=== PATIENT | female | born 1945 | race Caucasian/White ===

== ENCOUNTER 2019-12-21 13:45 | Outpatient (RCR) | payer MEDICARE, OTHER, SELFPAY ==
--- NOTE | 2019-09-28 13:57 | PT.OIE ---
Current Diagnoses Complex tear of medial meniscus, current injury, right knee, sequela (09/28/19) Other tear of medial meniscus, current injury, right knee, subsequent encounter (09/28/19) Visit Care Team Role Provider Type Santos Mendez Family Provider Non-Staff Primary Care Provider Specialty: Medical Address: [address], [place], [address] Email: Aron Lopez Attending Provider Non-Staff Referring Provider Specialty: Medical Address: [address], [place], [address] Email: Physical Therapy Initial Evaluation PT-OP-A Visit Information Start: 09/28/19 12:11 Freq: Status: Active Protocol: Document 09/28/19 10:31 (Rec: 09/28/19 13:53 [id number]) Out-Patient Physical Therapy Visit Information Visit Information Visit Type Initial Evaluation Visit Start Time 10:31 Visit Stop Time 11:15 Total Visit Minutes 44 Visit Number 07/30 Number of ROLLER STITCHER Visits 0 Evaluation Information Evaluation Date 09/28/19 Precautions Precautions OSteopenia falls PT-OP-B Current Condition Start: 09/28/19 12:11 Freq: Status: Active Protocol: Document 09/28/19 10:31 HH (Rec: 09/28/19 13:53 [id number]) Current Condition History of Current Condition Onset Date March, Current Complaints Post op R medial menicus removal, difficulty in bending History of Current Condition Pt is a 73yo female presented to clinic ongoing R knee pain since 2018 after two falls while she was trimming tree branches and moving supplies to 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 Pt went to see his PCP and was prescribed with some knee exercise and Alive for pain management. However, pt did not feel better and found out she has torn medial meniscus from MRI. Pt then went through arthoscopic clean up and removal on 08/09/19. Pt cont to have achy pain at medial joint line and have difficuly in sitting/ at flexed position. Walking tends to be fine but has difficulty climbing stairs and unable to kneel on floor for gardening work. Walking on uneven surface is also challenging; icing on her R knee and Alieve tends to help her pain. Dr. Lopez told pt to avoid jumping, running and twisting movements at this point to allow proper healing until her next follow up in November. Prior Treatments and Tests Dr. Lopez's referral comments: ROM, strnegtehning, stabilization including VMO strengtehning, IT band stretches, hip abduction and external rotator strengthening Treatment Goals Patient/Caregiver Goals 1. To be pain while sitting, squatting and climbing stairs 2. To be able to kneel on floor for her gardening work Personal Factors Other Personal Factors That May Effect Thyroid disorder Therapy/Recovery osteopenia DM II PT-OP-C Subjective Start: 09/28/19 12:11 Freq: Status: Active Protocol: Document 09/28/19 10:31 HH (Rec: 09/28/19 13:53 [id number]) OP-PT Subjective Patient Comments Patient Comments I just want to get my pain away Patient Questionnaires Lower Extremity Functional Scale LEFS Score 44 LEFS Impairment 40 to 59% Impaired (Score 32- 47) PT-OP-D Balance Start: 09/28/19 12:11 Freq: Status: Active Protocol: Document 09/28/19 10:31 HH (Rec: 09/28/19 13:53 [id number]) Balance Tests Single Limb Standing Single Limb- Right 3 Single Limb- Left 6 PT-OP-F Manual Assessment Start: 09/28/19 12:11 Freq: Status: Active Protocol: Document 09/28/19 10:31 HH (Rec: 09/28/19 13:53 [id number]) Manual Assessments Soft Tissue Assessment Soft Tissue Mobility Assessment Significant tenderness to touch at medial knee joint line and to pressure for distal hip adductors. PT-OP-G Mobility & Gait Start: 09/28/19 12:11 Freq: Status: Active Protocol: Document 09/28/19 10:31 HH (Rec: 09/28/19 13:53 [id number]) OP Gait Assessment Gait Deviations General Gait Pattern Decreased Stride Length, Decreased Feet Clearance Factors Limiting Gait Function Factors Limiting Gait Function Limited Range of Motion,Pain Comments Gait Comments Pt demonstrates bilateral early heel rise with limited feet clearance during swing phase. Short steps also noted. PT-OP-K Range of Motion Start: 09/28/19 12:11 Freq: Status: Active Protocol: Document 09/28/19 10:31 HH (Rec: 09/28/19 13:53 [id number]) Knee Goniometric Range of Motion Knee Right Knee ROM WFL Yes Patient Position Supine Flexion Active (degrees) 126 Extension Active (degrees) 0 Left Knee ROM WFL Yes Patient Position Supine Flexion Active (degrees) 135 Hyper-Extension Active 3 PT-OP-M Strength Start: 09/28/19 12:11 Freq: Status: Active Protocol: Document 09/28/19 10:31 (Rec: 09/28/19 13:53 [id number]) Knee Strength Knee Manual Muscle Testing Right Flexion (S2) 4+ Good+ Extension (L3) 4+ Good+ Comments no pain noted. Left Flexion (S2) 5 Normal Extension (L3) 5 Normal PT-OP-Q Treatments Start: 09/28/19 12:11 Freq: Status: Active Protocol: Document 09/28/19 10:31 (Rec: 09/28/19 13:53 [id number]) Manual Therapy Treatment Soft Tissue Mobilization knee (medial joint line) Mobilization Type Sustained Pressure,Trigger Point Release Intensity/Depth Superficial Body Position Supine Comments significant pain noted with light pressure. hip adductors Body Location R distal hip adductors Mobilization Type Rolling,Sustained Pressure, Trigger Point Release Intensity/Depth Superficial Body Position Supine Comments pillow underneath knee use of rolling pin and significant pain noted Self-Care/Home Management Treatment Education Patient Education Fall Risk,Home Exercise Program,Pain Management, Posture Other Education Educated pt on pain science regarding pain sensitization. Demonstrated pt with PT-OP-T Assessment and Plan Start: 09/28/19 12:11 Freq: Status: Active Protocol: Document 09/28/19 10:31 (Rec: 09/28/19 13:53 [id number]) Physical Therapy Assessment Rehab Potential Rehabilitation Potential Excellent Evaluation Complexity Number of Personal Factors/Comorbidities 1-2 Number of Body Systems Impaired 1-2 Clinical Presentation at Evaluation Stable Impairments Impairments Activity Tolerance,Balance, Functional Activities, Functional Mobility,Gait,Pain, Posture,ROM,Sensation,Soft Tissue Mobility,Strength, Transfers Goals gait Impairment Pt amb with lack of heel toe pattern bilaterally Electroplating Sales Representative Goal (LTG) Pt will participate HEP to improve gait efficiency and reduce her fall risks LTG Duration 8 weeks balance Impairment Pt has very limited SLS R=3 s, L =6 Short Term Goal (STG) Pt will improve her single leg balance by 5s bilaterally STG Duration 4 weeks Chcf Goal (LTG) Pt will improve her single leg balance by 10 s bilaterally so pt can walk on uneven surface without discomfort. LTG Duration 8 weeks pain Impairment Pt has heightened pain sensitivity to touch/ pressure at Rmedial joint line Chcf Goal (LTG) Pt will not have any R knee pain while squatting, sitting and stair climbing LTG Duration 8 weeks LEFS Impairment Pt scores 44 on LEFS Short Term Goal (STG) Pt will score > 48 to reduce her pain for functional activities STG Duration 4 weeks Chcf Goal (LTG) pt will score >63 on LEFS to improve her overall quality of life LTG Duration 8 weeks Assessment Summary Assessment This is a low complexity evaluation for this 73yo female with ongoing L knee pain d/t a complex tear of R medial meniscus. Pt had a arthroscopic surgery on but cont to have residual knee pain. Upon assessment, pt has close to full active ROM compared to L and only lack of 3 degrees for knee extension and 8 degree for knee flexion. Her overall strength is also WFL. However, pt has significant pain to touch and pressure along R hip distal adductors , especially at L knee medial joint line. Performed manual therapy on both sites to facilitate soft tissue desensitization who was able to bend her R knee in pain free immediately. Spend time on pain education regarding her injury and post surgical increased sensitivity . Pt will be a good canadidate for skilled physical therapy to improve her R knee mobility , strength, pain threshold to touch and pressure so pt can return to participating gardening work and climbing stairs in pain free. Physical Therapy Plan Frequency and Duration Frequency of Treatment 2x/Week Duration of Treatment 8 weeks Plan of Care Start Date 09/28/19 Plan of Care End Date 11/27/19 Therapeutic Interventions Therapeutic Interventions Balance Training,Gait Training ,Home Exercise Program,Joint Mobilizations,Manual Therapy, Neuromuscular Re-education, Patient/Caregiver Education, Self-Care/Home Management, Sensory Integration,Soft Tissue Mobilization,Taping, Therapeutic Activities, Therapeutic Exercises Modalities Cold Pack/Ice Massage,Electric Stimulation,Hot Packs, Infrared Therapy,Ultrasound Next Visit Focus/Plan Next Note Type Treatment Note Next Visit Plan check tolerance for post manual therapy cont desensitization to surroduning tissue add TKE and end range knee flexion balance training and leg press
--- NOTE | 2019-09-28 15:54 | PT.OPPOC ---
Physical, Occupational & Speech Therapy At [facility] Current Diagnoses Complex tear of medial meniscus, current injury, right knee, sequela (09/28/19) Other tear of medial meniscus, current injury, right knee, subsequent encounter (09/28/19) Visit Care Team Role Provider Type Santos Mendez Family Provider Non-Staff Primary Care Provider Specialty: Medical Address: [address], [place], [address] Email: Aron Lopez Attending Provider Non-Staff Referring Provider Specialty: Medical Address: [address], [place], [address] Email: Plan Of Care PT-OP-T Assessment and Plan Start: 09/28/19 12:11 Freq: Status: Active Protocol: Document 09/28/19 10:31 (Rec: 09/28/19 13:53 [id number]) Physical Therapy Assessment Rehab Potential Rehabilitation Potential Excellent Evaluation Complexity Number of Personal Factors/Comorbidities 1-2 Number of Body Systems Impaired 1-2 Clinical Presentation at Evaluation Stable Impairments Impairments Activity Tolerance,Balance, Functional Activities, Functional Mobility,Gait,Pain, Posture,ROM,Sensation,Soft Tissue Mobility,Strength, Transfers Goals gait Impairment Pt amb with lack of heel toe pattern bilaterally Half-Way Goal (LTG) Pt will participate HEP to improve gait efficiency and reduce her fall risks LTG Duration 8 weeks balance Impairment Pt has very limited SLS R=3 s, L =6 Short Term Goal (STG) Pt will improve her single leg balance by 5s bilaterally STG Duration 4 weeks Half-Way Goal (LTG) Pt will improve her single leg balance by 10 s bilaterally so pt can walk on uneven surface without discomfort. LTG Duration 8 weeks pain Impairment Pt has heightened pain sensitivity to touch/ pressure at Rmedial joint line Criminal Records Technician Goal (LTG) Pt will not have any R knee pain while squatting, sitting and stair climbing LTG Duration 8 weeks LEFS Impairment Pt scores 44 on LEFS Short Term Goal (STG) Pt will score > 48 to reduce her pain for functional activities STG Duration 4 weeks Half-Way Goal (LTG) pt will score >63 on LEFS to improve her overall quality of life LTG Duration 8 weeks Assessment Summary Assessment This is a low complexity evaluation for this 73yo female with ongoing L knee pain d/t a complex tear of R medial meniscus. Pt had a arthroscopic surgery on but cont to have residual knee pain. Upon assessment, pt has close to full active ROM compared to L and only lack of 3 degrees for knee extension and 8 degree for knee flexion. Her overall strength is also WFL. However, pt has significant pain to touch and pressure along R hip distal adductors , especially at L knee medial joint line. Performed manual therapy on both sites to facilitate soft tissue desensitization who was able to bend her R knee in pain free immediately. Spend time on pain education regarding her injury and post surgical increased sensitivity . Pt will be a good canadidate for skilled physical therapy to improve her R knee mobility , strength, pain threshold to touch and pressure so pt can return to participating gardening work and climbing stairs in pain free. Physical Therapy Plan Frequency and Duration Frequency of Treatment 2x/Week Duration of Treatment 8 weeks Plan of Care Start Date 09/28/19 Plan of Care End Date 11/27/19 Therapeutic Interventions Therapeutic Interventions Balance Training,Gait Training ,Home Exercise Program,Joint Mobilizations,Manual Therapy, Neuromuscular Re-education, Patient/Caregiver Education, Self-Care/Home Management, Sensory Integration,Soft Tissue Mobilization,Taping, Therapeutic Activities, Therapeutic Exercises Modalities Cold Pack/Ice Massage,Electric Stimulation,Hot Packs, Infrared Therapy,Ultrasound Next Visit Focus/Plan Next Note Type Treatment Note Next Visit Plan check tolerance for post manual therapy cont desensitization to surroduning tissue add TKE and end range knee flexion balance training and leg press Plan of Care Dates Plan of Care Start Date 09/28/19 Plan of Care End Date 11/27/19 Electronically Signed by: Leesa Heck PT 09/28/19 [id number] Please Sign and Return: I have reviewed this Plan of Care and certify that the skilled therapy services above are required to meet the patient?s needs. Physician Signature Date Printed Name and Credentials Clinical Instructor Signature Printed Name and Credentials
--- NOTE | 2019-10-03 16:18 | PT.OTN ---
Current Diagnoses Complex tear of medial meniscus, current injury, right knee, sequela (10/03/19) Other tear of medial meniscus, current injury, right knee, subsequent encounter (10/03/19) Physical Therapy Treatment Note PT-OP-A Visit Information Start: 09/28/19 12:11 Freq: Status: Active Protocol: Document 10/03/19 15:15 HH (Rec: 10/03/19 16:18 HH [email or web address]) Out-Patient Physical Therapy Visit Information Visit Information Visit Type Treatment Note Visit Start Time 15:15 Visit Stop Time 16:01 Total Visit Minutes 46 Visit Number 08/30 Number of DANCING TEACHER Visits 0 PT-OP-B Current Condition Start: 09/28/19 12:11 Freq: Status: Active Protocol: Document 09/28/19 10:31 HH (Rec: 09/28/19 13:53 HH [id number]) Current Condition History of Current Condition Onset Date March, Current Complaints Post op R medial menicus removal, difficulty in bending History of Current Condition Pt is a 73yo female presented to clinic ongoing R knee pain since 2018 after two falls while she was trimming tree branches and moving supplies to her 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 Pt went to see his PCP and was prescribed with some knee exercise and Alive for pain management. However, pt did not feel better and found out she has torn medial meniscus from MRI. Pt then went through arthoscopic clean up and removal on 08/09/19. Pt cont to have achy pain at medial joint line and have difficuly in sitting/ at flexed position. Walking tends to be fine but has difficulty climbing stairs and unable to kneel on floor for gardening work. Walking on uneven surface is also challenging; icing on her R knee and Alieve tends to help her pain. Dr. Lopez told pt to avoid jumping, running and twisting movements at this point to allow proper healing until her next follow up in November. Prior Treatments and Tests Dr. Lopez's referral comments: ROM, strnegtehning, stabilization including VMO strengtehning, IT band stretches, hip abduction and external rotator strengthening Treatment Goals Patient/Caregiver Goals 1. To be pain while sitting, squatting and climbing stairs 2. To be able to kneel on floor for her gardening work Personal Factors Other Personal Factors That May Effect Thyroid disorder Therapy/Recovery osteopenia DM II PT-OP-C Subjective Start: 09/28/19 12:11 Freq: Status: Active Protocol: Document 10/03/19 15:15 HH (Rec: 10/03/19 16:18 HH [email or web address]) OP-PT Subjective Patient Comments Patient Comments my knee feels better and im better sleep on my side now. Pratibha been using rolling pin for my thigh and massage my knee joint. Patient Reported Progress Improving PT-OP-D Balance Start: 09/28/19 12:11 Freq: Status: Active Protocol: Document 09/28/19 10:31 HH (Rec: 09/28/19 13:53 HH [id number]) Balance Tests Single Limb Standing Single Limb- Right 3 Single Limb- Left 6 PT-OP-F Manual Assessment Start: 09/28/19 12:11 Freq: Status: Active Protocol: Document 09/28/19 10:31 HH (Rec: 09/28/19 13:53 HH [id number]) Manual Assessments Soft Tissue Assessment Soft Tissue Mobility Assessment Significant tenderness to touch at medial knee joint line and to pressure for distal hip adductors. PT-OP-G Mobility & Gait Start: 09/28/19 12:11 Freq: Status: Active Protocol: Document 09/28/19 10:31 HH (Rec: 09/28/19 13:53 HH [id number]) OP Gait Assessment Gait Deviations General Gait Pattern Decreased Stride Length, Decreased Feet Clearance Factors Limiting Gait Function Factors Limiting Gait Function Limited Range of Motion,Pain Comments Gait Comments Pt demonstrates bilateral early heel rise with limited feet clearance during swing phase. Short steps also noted. PT-OP-K Range of Motion Start: 09/28/19 12:11 Freq: Status: Active Protocol: Document 09/28/19 10:31 HH (Rec: 09/28/19 13:53 HH [id number]) Knee Goniometric Range of Motion Knee Right Knee ROM WFL Yes Patient Position Supine Flexion Active (degrees) 126 Extension Active (degrees) 0 Left Knee ROM WFL Yes Patient Position Supine Flexion Active (degrees) 135 Hyper-Extension Active 3 PT-OP-M Strength Start: 09/28/19 12:11 Freq: Status: Active Protocol: Document 09/28/19 10:31 HH (Rec: 09/28/19 13:53 HH [id number]) Knee Strength Knee Manual Muscle Testing Right Flexion (S2) 4+ Good+ Extension (L3) 4+ Good+ Comments no pain noted. Left Flexion (S2) 5 Normal Extension (L3) 5 Normal PT-OP-Q Treatments Start: 09/28/19 12:11 Freq: Status: Active Protocol: Document 10/03/19 15:15 HH (Rec: 10/03/19 16:18 [email or web address]) Therapeutic Exercises Supine Exercises heel slide Supine Exercise Name towel underneath ankle Side right Reps/Minutes 8 x2 Comments for HEP, slow knee flexion TKE Supine Exercise Name towel underneath ankle Side right Reps/Minutes 8 x2 Comments for HEP Standing Exercises marching in place Standing Exercise Name finger support on table Side bilateral Comments 3 sec hold x 8 Manual Therapy Treatment Soft Tissue Mobilization knee (medial joint line) Mobilization Type Sustained Pressure,Trigger Point Release Intensity/Depth Superficial Body Position Supine Comments significant pain noted with light pressure. hip adductors Body Location R distal hip adductors Mobilization Type Rolling,Sustained Pressure, Trigger Point Release Intensity/Depth Superficial Body Position Supine Comments pillow underneath knee use of rolling pin and significant pain noted PT-OP-T Assessment and Plan Start: 09/28/19 12:11 Freq: Status: Active Protocol: Document 10/03/19 15:15 HH (Rec: 10/03/19 16:18 [email or web address]) Physical Therapy Assessment Goals gait Impairment Pt amb with lack of heel toe pattern bilaterally Child Protective Services Social Worker Goal (LTG) Pt will participate HEP to improve gait efficiency and reduce her fall risks LTG Duration 8 weeks balance Impairment Pt has very limited SLS R=3 s, L =6 Short Term Goal (STG) Pt will improve her single leg balance by 5s bilaterally STG Duration 4 weeks Child Protective Services Social Worker Goal (LTG) Pt will improve her single leg balance by 10 s bilaterally so pt can walk on uneven surface without discomfort. LTG Duration 8 weeks pain Impairment Pt has heightened pain sensitivity to touch/ pressure at Rmedial joint line Chcf Goal (LTG) Pt will not have any R knee pain while squatting, sitting and stair climbing LTG Duration 8 weeks LEFS Impairment Pt scores 44 on LEFS Short Term Goal (STG) Pt will score > 48 to reduce her pain for functional activities STG Duration 4 weeks Chcf Goal (LTG) pt will score >63 on LEFS to improve her overall quality of life LTG Duration 8 weeks Assessment Summary Assessment pt improves since last treatment with less pain and improved ROM. Flexion reached to 132 degrees actively. Tx focused on manual therapy on R hip add and medial joint line followed by HEP TKE, heel slide and SLS. Provided online HEP for pt to progress. Hold PT since this clinic will close from tomorrow until further notice d/t coronavirus . Will follow up after with pt via phone for check up. Physical Therapy Plan Hold Physical Therapy Reason For Hold Hold PT since this clinic will close from tomorrow until further notice d/t coronavirus . Will follow up after with pt via phone for check up. Next Visit Focus/Plan Next Note Type Treatment Note Next Visit Plan check tolerance for post manual therapy cont desensitization to surroduning tissue add TKE and end range knee flexion balance training and leg press
--- NOTE | 2019-11-13 15:06 | PT-OP ANOTE ---
This PT clinic has been closed since 10/03 d/t coronavirus pademic. Contacted pt via phone 11/08/19, pt reported her knee pain has improved and slowly progress to kneeling activities but still has difficulty to maintain kneeling position for garden work. She would like to continue therapy service to address her knee ROM and strength for functional activities in squating and kneeling positions. Reminded pt will have to follow CDC guidelines to wear mask, wash hands frequently and maintain social distancing during visits.
--- NOTE | 2019-11-23 15:28 | PT.OPPOC ---
Physical, Occupational & Speech Therapy At [facility] Current Diagnoses Complex tear of medial meniscus, current injury, right knee, sequela (11/23/19) Other tear of medial meniscus, current injury, right knee, subsequent encounter (11/23/19) Visit Care Team Role Provider Type Santos Mendez Family Provider Non-Staff Primary Care Provider Specialty: Medical Address: [address], [place], [address] Email: Aron Lopez Attending Provider Non-Staff Referring Provider Specialty: Medical Address: [address], [place], [address] Email: Plan Of Care PT-OP-T Assessment and Plan Start: 09/28/19 12:11 Freq: Status: Active Protocol: Document 11/23/19 12:57 (Rec: 11/23/19 15:28 [id number]) Physical Therapy Assessment Goals kneeling Impairment Unable to get to/ out from kneeling position without support Short Term Goal (STG) Pt will be able to get down to kneeling / get up from kneeling position without using support to mimic gardening work. STG Duration 4 weeks heeltoe Impairment pt is unable to do full heel toe without support Assisted Goal (LTG) Pt will be able to complete heel toe gait without support for 50 ft to improve heel strike and ankle stability LTG Duration 4 weeks gait Impairment Pt amb with lack of heel toe pattern bilaterally Assisted Goal (LTG) Pt will participate HEP to improve gait efficiency and reduce her fall risks LTG Duration 4 weeks balance Impairment Pt has very limited SLS R=14 s , L =13 Assisted Goal (LTG) Pt will improve her single leg balance by 20 s bilaterally so pt can walk on uneven surface without discomfort. LTG Duration 4 weeks pain Impairment Pt has heightened pain sensitivity to touch/ pressure at Rmedial joint line Mold Maker Helper Goal (LTG) Goal met. painfree during stairs and step down from getting OOB. LTG Duration 4 weeks LEFS Assisted Goal (LTG) have not assessed LTG Duration 4 weeks Assessment Summary Assessment Pt showed WNL knee ROM and strength in pain free at this point since her last visit. Pt 's single leg balance also has significant improvements. Howevre, she still has limited ankle DF and stability who showed limited heel strike and toe push off with shortened steps length. Added heel toe gait and crab walk to improved gait efficiency and hip stability. Will cont POC 1x/wk x 4 week so pt is able to negotiate uneven surface in the garden without support and decrease fall risks. Will assess hip extension next visit Physical Therapy Plan Frequency and Duration Frequency of Treatment 1x/Week Duration of Treatment 4 weeks Plan of Care Start Date 11/23/19 Plan of Care End Date 12/24/19 Therapeutic Interventions Therapeutic Interventions Balance Training,Gait Training ,Home Exercise Program,Joint Mobilizations,Manual Therapy, Neuromuscular Re-education, Patient/Caregiver Education, Self-Care/Home Management, Sensory Integration,Soft Tissue Mobilization,Taping, Therapeutic Activities, Therapeutic Exercises Modalities Cold Pack/Ice Massage,Electric Stimulation,Hot Packs, Infrared Therapy,Ultrasound Next Visit Focus/Plan Next Note Type Treatment Note Next Visit Plan B hip strengthening single leg strengthening ankle stability and mobility single leg balance activity heel toe gait. Plan of Care Dates Plan of Care Start Date 11/23/19 Plan of Care End Date 12/24/19 Electronically Signed by: Leesa Heck PT 11/23/19 [id number] Please Sign and Return: I have reviewed this Plan of Care and certify that the skilled therapy services above are required to meet the patient?s needs. Physician Signature Date Printed Name and Credentials Clinical Instructor Signature Printed Name and Credentials
--- NOTE | 2019-11-23 15:30 | PT.OTN ---
Current Diagnoses Complex tear of medial meniscus, current injury, right knee, sequela (11/23/19) Other tear of medial meniscus, current injury, right knee, subsequent encounter (11/23/19) Physical Therapy Treatment Note PT-OP-A Visit Information Start: 09/28/19 12:11 Freq: Status: Active Protocol: Document 11/23/19 12:57 HH (Rec: 11/23/19 15:28 [id number]) Out-Patient Physical Therapy Visit Information Visit Information Visit Type Treatment Note Visit Note reassessment today Visit Start Time 12:57 Visit Stop Time 13:40 Total Visit Minutes 43 Visit Number 09/27 Number of AUTH SPECIALIST Visits 0 PT-OP-B Current Condition Start: 09/28/19 12:11 Freq: Status: Active Protocol: Document 09/28/19 10:31 HH (Rec: 09/28/19 13:53 [id number]) Current Condition History of Current Condition Onset Date March, Current Complaints Post op R medial menicus removal, difficulty in bending History of Current Condition Pt is a 73yo female presented to clinic ongoing R knee pain since 2018 after two falls while she was trimming tree branches and 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 Pt went to see his PCP and was prescribed with some knee exercise and Alive for pain management. However, pt did not feel better and found out she has torn medial meniscus from MRI. Pt then went through arthoscopic clean up and removal on 08/09/19. Pt cont to have achy pain at medial joint line and have difficuly in sitting/ at flexed position. Walking tends to be fine but has difficulty climbing stairs and unable to kneel on floor for gardening work. Walking on uneven surface is also challenging; icing on her R knee and Alieve tends to help her pain. Dr. Lopez told pt to avoid jumping, running and twisting movements at this point to allow proper healing until her next follow up in November. Prior Treatments and Tests Dr. Lopez's referral comments: ROM, strnegtehning, stabilization including VMO strengtehning, IT band stretches, hip abduction and external rotator strengthening Treatment Goals Patient/Caregiver Goals 1. To be pain while sitting, squatting and climbing stairs 2. To be able to kneel on floor for her gardening work Personal Factors Other Personal Factors That May Effect Thyroid disorder Therapy/Recovery osteopenia DM II PT-OP-C Subjective Start: 09/28/19 12:11 Freq: Status: Active Protocol: Document 11/23/19 12:57 HH (Rec: 11/23/19 15:28 HH [id number]) OP-PT Subjective Patient Comments Patient Comments I feel fine with R knee since last visit. Still a little achy at the afternoon randomly . Self massage. Im able to step down from bed and going upstair have no problem anymore. I am able to kneel now as well. Patient Reported Progress Improving PT-OP-D Balance Start: 09/28/19 12:11 Freq: Status: Active Protocol: Document 11/23/19 12:57 HH (Rec: 11/23/19 15:28 HH [id number]) Balance Tests Single Limb Standing Single Limb- Right 15 Single Limb- Left 14 Tandem Tandem Standing 3 PT-OP-F Manual Assessment Start: 09/28/19 12:11 Freq: Status: Active Protocol: Document 09/28/19 10:31 HH (Rec: 09/28/19 13:53 HH [id number]) Manual Assessments Soft Tissue Assessment Soft Tissue Mobility Assessment Significant tenderness to touch at medial knee joint line and to pressure for distal hip adductors. PT-OP-G Mobility & Gait Start: 09/28/19 12:11 Freq: Status: Active Protocol: Document 09/28/19 10:31 HH (Rec: 09/28/19 13:53 [id number]) OP Gait Assessment Gait Deviations General Gait Pattern Decreased Stride Length, Decreased Feet Clearance Factors Limiting Gait Function Factors Limiting Gait Function Limited Range of Motion,Pain Comments Gait Comments Pt demonstrates bilateral early heel rise with limited feet clearance during swing phase. Short steps also noted. PT-OP-K Range of Motion Start: 09/28/19 12:11 Freq: Status: Active Protocol: Document 11/23/19 12:57 HH (Rec: 11/23/19 15:28 HH [id number]) Knee Goniometric Range of Motion Knee Prone knee flexion Knee ROM WFL No Patient Position Prone Flexion Active (degrees) 108 Right Knee ROM WFL Yes Patient Position Supine Flexion Active (degrees) 134 Extension Active (degrees) 0 Left Knee ROM WFL Yes Patient Position Supine Flexion Active (degrees) 134 Hyper-Extension Active 0 Ankle and Foot Goniometric Range of Motion Ankle and Foot Right Active Dorsiflexion with Knee Extended 3 Left Active Dorsiflexion with Knee Extended 3 PT-OP-M Strength Start: 09/28/19 12:11 Freq: Status: Active Protocol: Document 11/23/19 12:57 HH (Rec: 11/23/19 15:28 [id number]) Knee Strength Knee Manual Muscle Testing Right Flexion (S2) 5 Normal Extension (L3) 5 Normal Comments no pain noted. Left Flexion (S2) 5 Normal Extension (L3) 5 Normal PT-OP-Q Treatments Start: 09/28/19 12:11 Freq: Status: Active Protocol: Document 11/23/19 12:57 HH (Rec: 11/23/19 15:28 [id number]) Therapeutic Exercises Standing Exercises crab walk Standing Exercise Name cues on hip ER Side bilateral Resistance yellow band Reps/Minutes 6 mins Comments next to grab bar Neuro Re-Education Treatment Balance Activities tandem Surface level surface Equipment grab bar Reps/Duration 10 ft x 8 Comments semi tandem walk next to grab bar cues on facilitating heel strike and knee extension PT-OP-T Assessment and Plan Start: 09/28/19 12:11 Freq: Status: Active Protocol: Document 11/23/19 12:57 HH (Rec: 11/23/19 15:28 [id number]) Physical Therapy Assessment Goals kneeling Impairment Unable to get to/ out from kneeling position without support Short Term Goal (STG) Pt will be able to get down to kneeling / get up from kneeling position without using support to mimic gardening work. STG Duration 4 weeks heeltoe Impairment pt is unable to do full heel toe without support Snf Goal (LTG) Pt will be able to complete heel toe gait without support for 50 ft to improve heel strike and ankle stability LTG Duration 4 weeks gait Impairment Pt amb with lack of heel toe pattern bilaterally Snf Goal (LTG) Pt will participate HEP to improve gait efficiency and reduce her fall risks LTG Duration 4 weeks balance Impairment Pt has very limited SLS R=14 s , L =13 Senior It Assistant Goal (LTG) Pt will improve her single leg balance by 20 s bilaterally so pt can walk on uneven surface without discomfort. LTG Duration 4 weeks pain Impairment Pt has heightened pain sensitivity to touch/ pressure at Rmedial joint line Senior It Assistant Goal (LTG) Goal met. painfree during stairs and step down from getting OOB. LTG Duration 4 weeks LEFS Senior It Assistant Goal (LTG) have not assessed LTG Duration 4 weeks Assessment Summary Assessment Pt showed WNL knee ROM and strength in pain free at this point since her last visit. Pt 's single leg balance also has significant improvements. Howevre, she still has limited ankle DF and stability who showed limited heel strike and toe push off with shortened steps length. Added heel toe gait and crab walk to improved gait efficiency and hip stability. Will cont POC 1x/wk x 4 week so pt is able to negotiate uneven surface in the garden without support and decrease fall risks. Will assess hip extension next visit Physical Therapy Plan Frequency and Duration Frequency of Treatment 1x/Week Duration of Treatment 4 weeks Plan of Care Start Date 11/23/19 Plan of Care End Date 12/24/19 Therapeutic Interventions Therapeutic Interventions Balance Training,Gait Training ,Home Exercise Program,Joint Mobilizations,Manual Therapy, Neuromuscular Re-education, Patient/Caregiver Education, Self-Care/Home Management, Sensory Integration,Soft Tissue Mobilization,Taping, Therapeutic Activities, Therapeutic Exercises Modalities Cold Pack/Ice Massage,Electric Stimulation,Hot Packs, Infrared Therapy,Ultrasound Next Visit Focus/Plan Next Note Type Treatment Note Next Visit Plan B hip strengthening single leg strengthening ankle stability and mobility single leg balance activity heel toe gait.
--- NOTE | 2019-11-23 16:44 | PT.OPPN ---
Current Diagnoses Complex tear of medial meniscus, current injury, right knee, sequela (11/23/19) Other tear of medial meniscus, current injury, right knee, subsequent encounter (11/23/19) Physical Therapy Progress Note PT-OP-A Visit Information Start: 09/28/19 12:11 Freq: Status: Active Protocol: Document 11/23/19 12:57 HH (Rec: 11/23/19 15:28 [id number]) Out-Patient Physical Therapy Visit Information Visit Information Visit Type Treatment Note Visit Note reassessment today Visit Start Time 12:57 Visit Stop Time 13:40 Total Visit Minutes 43 Visit Number 09/27 Number of INCLINOMETER TESTER Visits 0 PT-OP-B Current Condition Start: 09/28/19 12:11 Freq: Status: Active Protocol: Document 09/28/19 10:31 HH (Rec: 09/28/19 13:53 [id number]) Current Condition History of Current Condition Onset Date March, Current Complaints Post op R medial menicus removal, difficulty in bending History of Current Condition Pt is a 73yo female presented to clinic ongoing R knee pain since 2018 after two falls while she was trimming tree branches and 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 Pt went to see his PCP and was prescribed with some knee exercise and Alive for pain management. However, pt did not feel better and found out she has torn medial meniscus from MRI. Pt then went through arthoscopic clean up and removal on 08/09/19. Pt cont to have achy pain at medial joint line and have difficuly in sitting/ at flexed position. Walking tends to be fine but has difficulty climbing stairs and unable to kneel on floor for gardening work. Walking on uneven surface is also challenging; icing on her R knee and Alieve tends to help her pain. Dr. Lopez told pt to avoid jumping, running and twisting movements at this point to allow proper healing until her next follow up in November. Prior Treatments and Tests Dr. Lopez's referral comments: ROM, strnegtehning, stabilization including VMO strengtehning, IT band stretches, hip abduction and external rotator strengthening Treatment Goals Patient/Caregiver Goals 1. To be pain while sitting, squatting and climbing stairs 2. To be able to kneel on floor for her gardening work Personal Factors Other Personal Factors That May Effect Thyroid disorder Therapy/Recovery osteopenia DM II PT-OP-C Subjective Start: 09/28/19 12:11 Freq: Status: Active Protocol: Document 11/23/19 12:57 HH (Rec: 11/23/19 15:28 HH [id number]) OP-PT Subjective Patient Comments Patient Comments I feel fine with R knee since last visit. Still a little achy at the afternoon randomly . Self massage. Im able to step down from bed and going upstair have no problem anymore. I am able to kneel now as well. Patient Reported Progress Improving PT-OP-D Balance Start: 09/28/19 12:11 Freq: Status: Active Protocol: Document 11/23/19 12:57 HH (Rec: 11/23/19 15:28 HH [id number]) Balance Tests Single Limb Standing Single Limb- Right 15 Single Limb- Left 14 Tandem Tandem Standing 3 PT-OP-F Manual Assessment Start: 09/28/19 12:11 Freq: Status: Active Protocol: Document 09/28/19 10:31 HH (Rec: 09/28/19 13:53 HH [id number]) Manual Assessments Soft Tissue Assessment Soft Tissue Mobility Assessment Significant tenderness to touch at medial knee joint line and to pressure for distal hip adductors. PT-OP-G Mobility & Gait Start: 09/28/19 12:11 Freq: Status: Active Protocol: Document 09/28/19 10:31 HH (Rec: 09/28/19 13:53 [id number]) OP Gait Assessment Gait Deviations General Gait Pattern Decreased Stride Length, Decreased Feet Clearance Factors Limiting Gait Function Factors Limiting Gait Function Limited Range of Motion,Pain Comments Gait Comments Pt demonstrates bilateral early heel rise with limited feet clearance during swing phase. Short steps also noted. PT-OP-K Range of Motion Start: 09/28/19 12:11 Freq: Status: Active Protocol: Document 11/23/19 12:57 HH (Rec: 11/23/19 15:28 HH [id number]) Knee Goniometric Range of Motion Knee Measured in Degrees Prone knee flexion Knee ROM WFL No Patient Position Prone Flexion Active (degrees) 108 Right Knee ROM WFL Yes Patient Position Supine Flexion Active (degrees) 134 Extension Active (degrees) 0 Left Knee ROM WFL Yes Patient Position Supine Flexion Active (degrees) 134 Hyper-Extension Active 0 Ankle and Foot Goniometric Range of Motion Ankle and Foot Measured in Degrees Right Active Dorsiflexion with Knee Extended 3 Left Active Dorsiflexion with Knee Extended 3 PT-OP-M Strength Start: 09/28/19 12:11 Freq: Status: Active Protocol: Document 11/23/19 12:57 HH (Rec: 11/23/19 15:28 HH [id number]) Knee Strength Knee Manual Muscle Testing Right Flexion (S2) 5 Normal Extension (L3) 5 Normal Comments no pain noted. Left Flexion (S2) 5 Normal Extension (L3) 5 Normal PT-OP-T Assessment and Plan Start: 09/28/19 12:11 Freq: Status: Active Protocol: Document 11/23/19 12:57 HH (Rec: 11/23/19 15:28 [id number]) Physical Therapy Assessment Goals kneeling Impairment Unable to get to/ out from kneeling position without support Short Term Goal (STG) Pt will be able to get down to kneeling / get up from kneeling position without using support to mimic gardening work. STG Duration 4 weeks heeltoe Impairment pt is unable to do full heel toe without support Special Education Teacher Goal (LTG) Pt will be able to complete heel toe gait without support for 50 ft to improve heel strike and ankle stability LTG Duration 4 weeks gait Impairment Pt amb with lack of heel toe pattern bilaterally Special Education Teacher Goal (LTG) Pt will participate HEP to improve gait efficiency and reduce her fall risks LTG Duration 4 weeks balance Impairment Pt has very limited SLS R=14 s , L =13 Special Education Teacher Goal (LTG) Pt will improve her single leg balance by 20 s bilaterally so pt can walk on uneven surface without discomfort. LTG Duration 4 weeks pain Impairment Pt has heightened pain sensitivity to touch/ pressure at Rmedial joint line Special Education Teacher Goal (LTG) Goal met. painfree during stairs and step down from getting OOB. LTG Duration 4 weeks LEFS Shelter Goal (LTG) have not assessed LTG Duration 4 weeks Assessment Summary Assessment Pt showed WNL knee ROM and strength in pain free at this point since her last visit. Pt 's single leg balance also has significant improvements. Howevre, she still has limited ankle DF and stability who showed limited heel strike and toe push off with shortened steps length. Added heel toe gait and crab walk to improved gait efficiency and hip stability. Will cont POC 1x/wk x 4 week so pt is able to negotiate uneven surface in the garden without support and decrease fall risks. Will assess hip extension next visit Physical Therapy Plan Frequency and Duration Frequency of Treatment 1x/Week Duration of Treatment 4 weeks Plan of Care Start Date 11/23/19 Plan of Care End Date 12/24/19 Therapeutic Interventions Therapeutic Interventions Balance Training,Gait Training ,Home Exercise Program,Joint Mobilizations,Manual Therapy, Neuromuscular Re-education, Patient/Caregiver Education, Self-Care/Home Management, Sensory Integration,Soft Tissue Mobilization,Taping, Therapeutic Activities, Therapeutic Exercises Modalities Cold Pack/Ice Massage,Electric Stimulation,Hot Packs, Infrared Therapy,Ultrasound Next Visit Focus/Plan Next Note Type Treatment Note Next Visit Plan B hip strengthening single leg strengthening ankle stability and mobility single leg balance activity heel toe gait.
--- NOTE | 2019-12-07 14:36 | PT.OTN ---
Current Diagnoses Complex tear of medial meniscus, current injury, right knee, sequela (12/07/19) Other tear of medial meniscus, current injury, right knee, subsequent encounter (12/07/19) Physical Therapy Treatment Note PT-OP-A Visit Information Start: 09/28/19 12:11 Freq: Status: Active Protocol: Document 12/07/19 13:48 HH (Rec: 12/07/19 14:36 HH [id number]) Out-Patient Physical Therapy Visit Information Visit Information Visit Type Treatment Note Visit Start Time 13:47 Visit Stop Time 14:30 Total Visit Minutes 43 Visit Number 10/28 Number of OUTCOMES MANAGER Visits 0 PT-OP-B Current Condition Start: 09/28/19 12:11 Freq: Status: Active Protocol: Document 09/28/19 10:31 HH (Rec: 09/28/19 13:53 HH [id number]) Current Condition History of Current Condition Onset Date March, Current Complaints Post op R medial menicus removal, difficulty in bending History of Current Condition Pt is a 73yo female presented to clinic ongoing R knee pain since 2018 after two falls while she was trimming tree branches and moving supplies to her pick up 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 Pt went to see his PCP and was prescribed with some knee exercise and Alive for pain management. However, pt did not feel better and found out she has torn medial meniscus from MRI. Pt then went through arthoscopic clean up and removal on 08/09/19. Pt cont to have achy pain at medial joint line and have difficuly in sitting/ at flexed position. Walking tends to be fine but has difficulty climbing stairs and unable to kneel on floor for gardening work. Walking on uneven surface is also challenging; icing on her R knee and Alieve tends to help her pain. Dr. Lopez told pt to avoid jumping, running and twisting movements at this point to allow proper healing until her next follow up in November. Prior Treatments and Tests Dr. Lopez's referral comments: ROM, strnegtehning, stabilization including VMO strengtehning, IT band stretches, hip abduction and external rotator strengthening Treatment Goals Patient/Caregiver Goals 1. To be pain while sitting, squatting and climbing stairs 2. To be able to kneel on floor for her gardening work Personal Factors Other Personal Factors That May Effect Thyroid disorder Therapy/Recovery osteopenia DM II PT-OP-C Subjective Start: 09/28/19 12:11 Freq: Status: Active Protocol: Document 12/07/19 13:48 HH (Rec: 12/07/19 14:36 HH [id number]) OP-PT Subjective Patient Comments Patient Comments My R knee got bruised because there's a heavy piece of wood dropped on top of my R knees. I was able to knee on the floor couple times and [place] problem. Patient Reported Progress Improving PT-OP-D Balance Start: 09/28/19 12:11 Freq: Status: Active Protocol: Document 11/23/19 12:57 HH (Rec: 11/23/19 15:28 HH [id number]) Balance Tests Single Limb Standing Single Limb- Right 15 Single Limb- Left 14 Tandem Tandem Standing 3 PT-OP-F Manual Assessment Start: 09/28/19 12:11 Freq: Status: Active Protocol: Document 09/28/19 10:31 HH (Rec: 09/28/19 13:53 HH [id number]) Manual Assessments Soft Tissue Assessment Soft Tissue Mobility Assessment Significant tenderness to touch at medial knee joint line and to pressure for distal hip adductors. PT-OP-G Mobility & Gait Start: 09/28/19 12:11 Freq: Status: Active Protocol: Document 09/28/19 10:31 HH (Rec: 09/28/19 13:53 HH [id number]) OP Gait Assessment Gait Deviations General Gait Pattern Decreased Stride Length, Decreased Feet Clearance Factors Limiting Gait Function Factors Limiting Gait Function Limited Range of Motion,Pain Comments Gait Comments Pt demonstrates bilateral early heel rise with limited feet clearance during swing phase. Short steps also noted. PT-OP-K Range of Motion Start: 09/28/19 12:11 Freq: Status: Active Protocol: Document 11/23/19 12:57 HH (Rec: 11/23/19 15:28 HH [id number]) Knee Goniometric Range of Motion Knee Prone knee flexion Knee ROM WFL No Patient Position Prone Flexion Active (degrees) 108 Right Knee ROM WFL Yes Patient Position Supine Flexion Active (degrees) 134 Extension Active (degrees) 0 Left Knee ROM WFL Yes Patient Position Supine Flexion Active (degrees) 134 Hyper-Extension Active 0 Ankle and Foot Goniometric Range of Motion Ankle and Foot Right Active Dorsiflexion with Knee Extended 3 Left Active Dorsiflexion with Knee Extended 3 PT-OP-M Strength Start: 09/28/19 12:11 Freq: Status: Active Protocol: Document 11/23/19 12:57 HH (Rec: 11/23/19 15:28 HH [id number]) Knee Strength Knee Manual Muscle Testing Right Flexion (S2) 5 Normal Extension (L3) 5 Normal Comments no pain noted. Left Flexion (S2) 5 Normal Extension (L3) 5 Normal PT-OP-Q Treatments Start: 09/28/19 12:11 Freq: Status: Active Protocol: Document 12/07/19 13:48 HH (Rec: 12/07/19 14:36 [id number]) Cardio Equipment Recumbent Bicycle Duration (Minutes) 3 Resistance 3 Gym Equipment Shuttle Balance red Details red Reps/Duration 15 mins Comments ankle strategy with static stance staggered stance followed by with perturbation for 5 mins Therapeutic Exercises Other Exercises lunges 2 Other Exercise Name from half kneeling position Side bilateral Reps/Minutes 5x 2each Comments next to grab bar lunges Side bilateral Equipment Used bosu ball Reps/Minutes 10 x2 each Comments next to grab bar Manual Therapy Treatment Soft Tissue Mobilization knee (medial joint line) Mobilization Type Sustained Pressure,Trigger Point Release Intensity/Depth Deep Body Position Supine Comments no pain noted Neuro Re-Education Treatment Balance Activities tandem Surface level surface Equipment grab bar Reps/Duration 10 ft x 8 Comments semi tandem walk next to grab bar cues on facilitating heel strike and knee extension PT-OP-T Assessment and Plan Start: 09/28/19 12:11 Freq: Status: Active Protocol: Document 12/07/19 13:48 HH (Rec: 12/07/19 14:36 [id number]) Physical Therapy Assessment Goals kneeling Impairment Unable to get to/ out from kneeling position without support Short Term Goal (STG) Pt will be able to get down to kneeling / get up from kneeling position without using support to mimic gardening work. STG Duration 4 weeks heeltoe Impairment pt is unable to do full heel toe without support Underground Production Foreperson Goal (LTG) Pt will be able to complete heel toe gait without support for 50 ft to improve heel strike and ankle stability LTG Duration 4 weeks gait Impairment Pt amb with lack of heel toe pattern bilaterally Underground Production Foreperson Goal (LTG) Pt will participate HEP to improve gait efficiency and reduce her fall risks LTG Duration 4 weeks balance Impairment Pt has very limited SLS R=14 s , L =13 Underground Production Foreperson Goal (LTG) Pt will improve her single leg balance by 20 s bilaterally so pt can walk on uneven surface without discomfort. LTG Duration 4 weeks pain Impairment Pt has heightened pain sensitivity to touch/ pressure at Rmedial joint line Underground Production Foreperson Goal (LTG) Goal met. painfree during stairs and step down from getting OOB. LTG Duration 4 weeks LEFS Jail Goal (LTG) have not assessed LTG Duration 4 weeks Assessment Summary Assessment Althought pt had an accident that a piece of wood fell on her knee, only a minor bruise is noted. No strength/ ROM loss. Pt progress very well in general, able to perform semi tandem without use of grab bar, pt also did lunges on bosu ball and from 1/2 kneeling position for strengthening ex today. Physical Therapy Plan Next Visit Focus/Plan Next Note Type Treatment Note Next Visit Plan B hip strengthening single leg strengthening ankle stability and mobility single leg balance activity heel toe gait.
--- NOTE | 2019-12-14 18:13 | PT.OTN ---
Current Diagnoses Complex tear of medial meniscus, current injury, right knee, sequela (12/14/19) Other tear of medial meniscus, current injury, right knee, subsequent encounter (12/14/19) Physical Therapy Treatment Note PT-OP-A Visit Information Start: 09/28/19 12:11 Freq: Status: Active Protocol: Document 12/14/19 18:05 HH (Rec: 12/14/19 18:13 [id number]) Out-Patient Physical Therapy Visit Information Visit Information Visit Type Treatment Note Visit Start Time 14:35 Visit Stop Time 15:15 Total Visit Minutes 40 Visit Number 11/27 Number of [facility] PHYSICIAN Visits 0 PT-OP-B Current Condition Start: 09/28/19 12:11 Freq: Status: Active Protocol: Document 09/28/19 10:31 HH (Rec: 09/28/19 13:53 [id number]) Current Condition History of Current Condition Onset Date March, Current Complaints Post op R medial menicus removal, difficulty in bending History of Current Condition Pt is a 73yo female presented to clinic ongoing R knee pain since 2018 after two falls while she was trimming tree branches and moving supplies to her 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 Pt went to see his PCP and was prescribed with some knee exercise and Alive for pain management. However, pt did not feel better and found out she has torn medial meniscus from MRI. Pt then went through arthoscopic clean up and removal on 08/09/19. Pt cont to have achy pain at medial joint line and have difficuly in sitting/ at flexed position. Walking tends to be fine but has difficulty climbing stairs and unable to kneel on floor for gardening work. Walking on uneven surface is also challenging; icing on her R knee and Alieve tends to help her pain. Dr. Lopez told pt to avoid jumping, running and twisting movements at this point to allow proper healing until her next follow up in November. Prior Treatments and Tests Dr. Lopez's referral comments: ROM, strnegtehning, stabilization including VMO strengtehning, IT band stretches, hip abduction and external rotator strengthening Treatment Goals Patient/Caregiver Goals 1. To be pain while sitting, squatting and climbing stairs 2. To be able to kneel on floor for her gardening work Personal Factors Other Personal Factors That May Effect Thyroid disorder Therapy/Recovery osteopenia DM II PT-OP-C Subjective Start: 09/28/19 12:11 Freq: Status: Active Protocol: Document 12/14/19 18:05 HH (Rec: 12/14/19 18:13 HH [id number]) OP-PT Subjective Patient Comments Patient Comments My L knee gave out this morning and i couldnt get up from the floor. I think i tored something, but my R knee is doing good. PT-OP-D Balance Start: 09/28/19 12:11 Freq: Status: Active Protocol: Document 11/23/19 12:57 HH (Rec: 11/23/19 15:28 HH [id number]) Balance Tests Single Limb Standing Single Limb- Right 15 Single Limb- Left 14 Tandem Tandem Standing 3 PT-OP-F Manual Assessment Start: 09/28/19 12:11 Freq: Status: Active Protocol: Document 09/28/19 10:31 HH (Rec: 09/28/19 13:53 HH [id number]) Manual Assessments Soft Tissue Assessment Soft Tissue Mobility Assessment Significant tenderness to touch at medial knee joint line and to pressure for distal hip adductors. PT-OP-G Mobility & Gait Start: 09/28/19 12:11 Freq: Status: Active Protocol: Document 09/28/19 10:31 HH (Rec: 09/28/19 13:53 HH [id number]) OP Gait Assessment Gait Deviations General Gait Pattern Decreased Stride Length, Decreased Feet Clearance Factors Limiting Gait Function Factors Limiting Gait Function Limited Range of Motion,Pain Comments Gait Comments Pt demonstrates bilateral early heel rise with limited feet clearance during swing phase. Short steps also noted. PT-OP-K Range of Motion Start: 09/28/19 12:11 Freq: Status: Active Protocol: Document 11/23/19 12:57 HH (Rec: 11/23/19 15:28 HH [id number]) Knee Goniometric Range of Motion Knee Prone knee flexion Knee ROM WFL No Patient Position Prone Flexion Active (degrees) 108 Right Knee ROM WFL Yes Patient Position Supine Flexion Active (degrees) 134 Extension Active (degrees) 0 Left Knee ROM WFL Yes Patient Position Supine Flexion Active (degrees) 134 Hyper-Extension Active 0 Ankle and Foot Goniometric Range of Motion Ankle and Foot Right Active Dorsiflexion with Knee Extended 3 Left Active Dorsiflexion with Knee Extended 3 PT-OP-M Strength Start: 09/28/19 12:11 Freq: Status: Active Protocol: Document 11/23/19 12:57 (Rec: 11/23/19 15:28 [id number]) Knee Strength Knee Manual Muscle Testing Right Flexion (S2) 5 Normal Extension (L3) 5 Normal Comments no pain noted. Left Flexion (S2) 5 Normal Extension (L3) 5 Normal PT-OP-Q Treatments Start: 09/28/19 12:11 Freq: Status: Active Protocol: Document 12/14/19 18:05 (Rec: 12/14/19 18:13 [id number]) Cardio Equipment Recumbent Bicycle Duration (Minutes) 6 Resistance 3 Therapeutic Exercises Standing Exercises ankle board Standing Exercise Name without UE support Side bilateral Reps/Minutes 6 mins Comments for ankle strategy hurdles 2 Standing Exercise Name side step Side bilateral Reps/Minutes 8 rounds Comments within // bar hurdles Standing Exercise Name fwd, step to pattern Side bilateral Reps/Minutes 10 rounds Comments within //bar Manual Therapy Treatment Soft Tissue Mobilization knee (medial joint line) Mobilization Type Sustained Pressure,Trigger Point Release Intensity/Depth Deep Body Position Supine Comments no pain noted PT-OP-T Assessment and Plan Start: 09/28/19 12:11 Freq: Status: Active Protocol: Document 12/14/19 18:05 (Rec: 12/14/19 18:13 [id number]) Physical Therapy Assessment Goals kneeling Impairment Unable to get to/ out from kneeling position without support Short Term Goal (STG) Pt will be able to get down to kneeling / get up from kneeling position without using support to mimic gardening work. STG Duration 4 weeks heeltoe Impairment pt is unable to do full heel toe without support Mcc Goal (LTG) Pt will be able to complete heel toe gait without support for 50 ft to improve heel strike and ankle stability LTG Duration 4 weeks gait Impairment Pt amb with lack of heel toe pattern bilaterally Mcc Goal (LTG) Pt will participate HEP to improve gait efficiency and reduce her fall risks LTG Duration 4 weeks balance Impairment Pt has very limited SLS R=14 s , L =13 Mcc Goal (LTG) Pt will improve her single leg balance by 20 s bilaterally so pt can walk on uneven surface without discomfort. LTG Duration 4 weeks pain Impairment Pt has heightened pain sensitivity to touch/ pressure at Rmedial joint line Curriculum Supervisor Goal (LTG) Goal met. painfree during stairs and step down from getting OOB. LTG Duration 4 weeks LEFS Curriculum Supervisor Goal (LTG) have not assessed LTG Duration 4 weeks Assessment Summary Assessment Pt c/o discomfort after she twisted her knee and gave out earlier this morning. This PT did screening on her knee and pt's strength/ ROM/ ligamentous structures are all unremarkable. She does have tenderness to pressure at soft tissue structure around patella. No swelling sign. Explained pt regarding her recent L knee discomfort possibly d/t increase gardening activity. This session focused on balance and endurance work. and Pt reports relief in symptoms at the end. Will cont to monitor
--- NOTE | 2019-12-21 14:30 | PT.OTN ---
Current Diagnoses Complex tear of medial meniscus, current injury, right knee, sequela (12/21/19) Other tear of medial meniscus, current injury, right knee, subsequent encounter (12/21/19) Physical Therapy Treatment Note PT-OP-A Visit Information Start: 09/28/19 12:11 Freq: Status: Active Protocol: Document 12/21/19 13:45 HH (Rec: 12/21/19 14:30 HH [id number]) Out-Patient Physical Therapy Visit Information Visit Information Visit Type Treatment Note Visit Start Time 13:45 Visit Stop Time 14:20 Total Visit Minutes 35 Visit Number 12/28 Number of BILLING AUDITOR Visits 0 PT-OP-B Current Condition Start: 09/28/19 12:11 Freq: Status: Active Protocol: Document 09/28/19 10:31 HH (Rec: 09/28/19 13:53 HH [id number]) Current Condition History of Current Condition Onset Date March, Current Complaints Post op R medial menicus removal, difficulty in bending History of Current Condition Pt is a 73yo female presented to clinic ongoing R knee pain since 2018 after two falls while she was trimming tree branches and moving 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 Pt went to see his PCP and was prescribed with some knee exercise and Alive for pain management. However, pt did not feel better and found out she has torn medial meniscus from MRI. Pt then went through arthoscopic clean up and removal on 08/09/19. Pt cont to have achy pain at medial joint line and have difficuly in sitting/ at flexed position. Walking tends to be fine but has difficulty climbing stairs and unable to kneel on floor for gardening work. Walking on uneven surface is also challenging; icing on her R knee and Alieve tends to help her pain. Dr. Lopez told pt to avoid jumping, running and twisting movements at this point to allow proper healing until her next follow up in November. Prior Treatments and Tests Dr. Lopez's referral comments: ROM, strnegtehning, stabilization including VMO strengtehning, IT band stretches, hip abduction and external rotator strengthening Treatment Goals Patient/Caregiver Goals 1. To be pain while sitting, squatting and climbing stairs 2. To be able to kneel on floor for her gardening work Personal Factors Other Personal Factors That May Effect Thyroid disorder Therapy/Recovery osteopenia DM II PT-OP-C Subjective Start: 09/28/19 12:11 Freq: Status: Active Protocol: Document 12/21/19 13:45 HH (Rec: 12/21/19 14:30 HH [id number]) OP-PT Subjective Patient Comments Patient Comments My left leg started to feel weak lately. R knee doing perfect now. Patient Reported Progress Improving PT-OP-D Balance Start: 09/28/19 12:11 Freq: Status: Active Protocol: Document 11/23/19 12:57 HH (Rec: 11/23/19 15:28 HH [id number]) Balance Tests Single Limb Standing Single Limb- Right 15 Single Limb- Left 14 Tandem Tandem Standing 3 PT-OP-F Manual Assessment Start: 09/28/19 12:11 Freq: Status: Active Protocol: Document 09/28/19 10:31 HH (Rec: 09/28/19 13:53 HH [id number]) Manual Assessments Soft Tissue Assessment Soft Tissue Mobility Assessment Significant tenderness to touch at medial knee joint line and to pressure for distal hip adductors. PT-OP-G Mobility & Gait Start: 09/28/19 12:11 Freq: Status: Active Protocol: Document 09/28/19 10:31 HH (Rec: 09/28/19 13:53 HH [id number]) OP Gait Assessment Gait Deviations General Gait Pattern Decreased Stride Length, Decreased Feet Clearance Factors Limiting Gait Function Factors Limiting Gait Function Limited Range of Motion,Pain Comments Gait Comments Pt demonstrates bilateral early heel rise with limited feet clearance during swing phase. Short steps also noted. PT-OP-K Range of Motion Start: 09/28/19 12:11 Freq: Status: Active Protocol: Document 11/23/19 12:57 HH (Rec: 11/23/19 15:28 HH [id number]) Knee Goniometric Range of Motion Knee Prone knee flexion Knee ROM WFL No Patient Position Prone Flexion Active (degrees) 108 Right Knee ROM WFL Yes Patient Position Supine Flexion Active (degrees) 134 Extension Active (degrees) 0 Left Knee ROM WFL Yes Patient Position Supine Flexion Active (degrees) 134 Hyper-Extension Active 0 Ankle and Foot Goniometric Range of Motion Ankle and Foot Right Active Dorsiflexion with Knee Extended 3 Left Active Dorsiflexion with Knee Extended 3 PT-OP-M Strength Start: 09/28/19 12:11 Freq: Status: Active Protocol: Document 11/23/19 12:57 HH (Rec: 11/23/19 15:28 HH [id number]) Knee Strength Knee Manual Muscle Testing Right Flexion (S2) 5 Normal Extension (L3) 5 Normal Comments no pain noted. Left Flexion (S2) 5 Normal Extension (L3) 5 Normal PT-OP-Q Treatments Start: 09/28/19 12:11 Freq: Status: Active Protocol: Document 12/21/19 13:45 HH (Rec: 12/21/19 14:30 [id number]) Cardio Equipment Recumbent Bicycle Duration (Minutes) 6 Resistance 3 Seat Position 5 Gym Equipment Shuttle Balance red Details red Reps/Duration 8 mins Comments ankle strategy with static stance staggered stance followed by with perturbation for 3 mins Therapeutic Exercises Standing Exercises toe tap Side bilateral Reps/Minutes 8 x2 Comments cues on light tap on floor only step up / down Standing Exercise Name 6 inches step Side bilateral Reps/Minutes 8 x 2 ankle board Standing Exercise Name without UE support Side bilateral Reps/Minutes 6 mins Comments for ankle strategy marching in place Standing Exercise Name next to grab bar Side bilateral Reps/Minutes 8 mins Manual Therapy Treatment Soft Tissue Mobilization L quad Mobilization Type Rolling,Sustained Pressure, Trigger Point Release Intensity/Depth Moderate Body Position Supine Comments distal quad PT-OP-T Assessment and Plan Start: 09/28/19 12:11 Freq: Status: Active Protocol: Document 12/21/19 13:45 HH (Rec: 12/21/19 14:30 [id number]) Physical Therapy Assessment Goals kneeling Impairment Unable to get to/ out from kneeling position without support Short Term Goal (STG) Pt will be able to get down to kneeling / get up from kneeling position without using support to mimic gardening work. STG Duration 4 weeks Longterm Goal (LTG) Goal met: 12/20 Pt is able to get up from kneeling position without support heeltoe Impairment pt is unable to do full heel toe without support Longterm Goal (LTG) Pt will be able to complete heel toe gait without support for 50 ft to improve heel strike and ankle stability LTG Duration 4 weeks gait Impairment Pt amb with lack of heel toe pattern bilaterally Numerical Control Nesting Operator Goal (LTG) Pt will participate HEP to improve gait efficiency and reduce her fall risks 6/11: goal met. Pt shows improved heel strikes. LTG Duration 4 weeks balance Impairment Pt has very limited SLS R=14 s , L =13 Numerical Control Nesting Operator Goal (LTG) 12/20: Goal met LTG Duration 4 weeks pain Impairment Pt has heightened pain sensitivity to touch/ pressure at Rmedial joint line Numerical Control Nesting Operator Goal (LTG) Goal met. painfree during stairs and step down from getting OOB. 12/20 goal met: pain free for OOB activities and stair climbing. LTG Duration 4 weeks LEFS Numerical Control Nesting Operator Goal (LTG) have not assessed LTG Duration 4 weeks Progress Towards Goals Progress Towards Goals Progressing Toward Goals Assessment Summary Assessment Pt reports she is 100 % recovered at this point with no knee pain and fully returned to functional activities. Reviewed HEP today and pt shows good understanding and have good safety awareness.
== END 2020-03-07 09:18 ==
LOC: PHYS 13:45
PROVIDERS: Family Provider Family Medicine; PCP Family Medicine; Referring Provider Orthopaedic Surgery; Visit Provider Orthopaedic Surgery
DX: S83.241D Other tear of medial meniscus, current injury, right knee, subsequent encounter (principal); S83.231S Complex tear of medial meniscus, current injury, right knee, sequela
CPT/HCPCS: 97110; 97112; 97140; 97161; 97164

== ENCOUNTER 2020-09-16 10:30 | Outpatient (RCR) | payer MEDICARE, OTHER, SELFPAY ==
--- NOTE | 2020-08-05 17:13 | PT.OIE ---
Current Diagnoses Complex tear of medial meniscus, current injury, left knee, subsequent encounter (08/05/20) Visit Care Team Role Provider Type Santos Mendez DO Family Provider Non-Staff Primary Care Provider Specialty: Family Practice Address: [address], [place], [address] Email: Dwain Lopez MD Attending Provider Non-Staff Referring Provider Specialty: Orthopedic Surgery Address: [address] , [place], [address] Email: Physical Therapy Initial Evaluation PT-OP-A Visit Information Start: 08/05/20 16:43 Freq: Status: Active Protocol: Document 08/05/20 16:43 HH (Rec: 08/05/20 17:13 HH [email or web address]) Out-Patient Physical Therapy Visit Information Visit Information Visit Type Initial Evaluation Visit Start Time 13:46 Visit Stop Time 14:26 Total Visit Minutes 40 Visit Number 07/30 Number of SHOP ESTIMATOR Visits 0 Evaluation Information Evaluation Date 08/05/20 PT-OP-B Current Condition Start: 08/05/20 16:43 Freq: Status: Active Protocol: Document 08/05/20 16:43 HH (Rec: 08/05/20 17:13 HH [email or web address]) Current Condition History of Current Condition Onset Date apr, 2020 Current Complaints post op L medial and lateral meniscus, R medial knee pain History of Current Condition Pt is a 74yo female presented to clinic with B knee discomfort since last year. Pt had a arthoscopic clean up and removal on L meniscus in Apr and on R medial meniscus in 08/09/19. Pt stated that her L knee has been recovering well and has full ROM but feels like lack of strength. She is currently using step to pattern with rails for stair climbing and has difficulty getting up and down from the floor. However, pt does not have much c/o pain . Pt also had PT for her R knee and recovered very well but still has mild discomfort with tenderness to pressure at R medial joint line. Prior Treatments and Tests course of PT for her R medial knee from September to December. Treatment Goals Patient/Caregiver Goals 1. to be able to do gardening activities in kneeling position 2. to be able to climb ladder again for housework 3. to be able to get up and down from the floor at ease. PT-OP-C Subjective Start: 08/05/20 16:43 Freq: Status: Active Protocol: Document 08/05/20 16:43 HH (Rec: 08/05/20 17:13 [email or web address]) Patient Questionnaires Lower Extremity Functional Scale LEFS Score 64 LEFS Impairment 1 to 19% Impaired (Score 63-79 ) PT-OP-D Balance Start: 08/05/20 16:43 Freq: Status: Active Protocol: Document 08/05/20 16:43 HH (Rec: 08/05/20 17:13 [email or web address]) Balance Tests Single Limb Standing Single Limb- Right 13 Single Limb- Left 11.3 PT-OP-F Manual Assessment Start: 08/05/20 16:43 Freq: Status: Active Protocol: Document 08/05/20 16:43 HH (Rec: 08/05/20 17:13 [email or web address]) Manual Assessments Soft Tissue Assessment Soft Tissue Mobility Assessment tenderness to pressure at R hip adductors and medial knee joint line Joint Mobility Assessment Joint Mobility Assessment WFL PT-OP-G Mobility & Gait Start: 08/05/20 16:43 Freq: Status: Active Protocol: Document 08/05/20 16:43 HH (Rec: 08/05/20 17:13 [email or web address]) Stair Climbing Evaluation Devices Stair Climbing Assistive Devices Right Railing Technique/Endurance Stair Climbing Direction Ascend and Descend Stair Climbing Technique Step Over Step,Step to Step Comments Stair Climbing Comments pt was able to climb 4 steps x 2 with step over pattern with 1 rail. She was very cautious with her steps. PT-OP-K Range of Motion Start: 08/05/20 16:43 Freq: Status: Active Protocol: Document 08/05/20 16:43 HH (Rec: 08/05/20 17:13 [email or web address]) Knee Goniometric Range of Motion Knee Right Knee ROM WFL Yes Patient Position Supine Flexion Active (degrees) 131 Extension Active (degrees) 0 Left Knee ROM WFL Yes Patient Position Supine Flexion Active (degrees) 130 Extension Active (degrees) 0 PT-OP-L Special Tests Start: 08/05/20 16:43 Freq: Status: Active Protocol: Document 08/05/20 16:43 HH (Rec: 08/05/20 17:13 [email or web address]) Special Tests Knee Special Tests Waqas Test Test Results -ve B Varus- 0 Degrees Test Results -ve B Valgus- 25 Degrees Test Results -ve B Varus- 25 Degrees Test Results -ve B Valgus- 0 Degrees Test Results -ve B PT-OP-M Strength Start: 08/05/20 16:43 Freq: Status: Active Protocol: Document 08/05/20 16:43 (Rec: 08/05/20 17:13 [email or web address]) Hip Strength Hip Manual Muscle Testing Right Flexion (L2) 5 Normal Extension (S1) 5 Normal Abduction 5 Normal Adduction 5 Normal External Rotation 5 Normal Internal Rotation 5 Normal Left Flexion (L2) 5 Normal Extension (S1) 5 Normal Abduction 5 Normal Adduction 5 Normal External Rotation 5 Normal Internal Rotation 5 Normal Knee Strength Knee Manual Muscle Testing Left Flexion (S2) 4+ Good+ Extension (L3) 4+ Good+ Right Flexion (S2) 4+ Good+ Extension (L3) 4+ Good+ PT-OP-T Assessment and Plan Start: 08/05/20 16:43 Freq: Status: Active Protocol: Document 08/05/20 16:43 (Rec: 08/05/20 17:13 [email or web address]) Physical Therapy Assessment Rehab Potential Rehabilitation Potential Excellent Evaluation Complexity Number of Personal Factors/Comorbidities 0 Number of Body Systems Impaired 1-2 Clinical Presentation at Evaluation Stable Impairments Impairments Activity Tolerance,Balance, Functional Activities, Functional Mobility,Gait,Pain, ROM,Soft Tissue Mobility, Strength,Transfers Goals functional activities Impairment pt has difficulty getting up from the floor and kneeling Short Term Goal (STG) pt will be able to getting up from floor with 1 UE support by using lunges so she can recovery from floor after gardening STG Duration 4 weeks Beef Ribber Goal (LTG) pt will be able to getting up from floor without support by using lunges so she can recovery from floor after gardening LTG Duration 8 weeks balance Impairment SLS= 11-13 s Short Term Goal (STG) pt will have improved SLS up to average 15s in 3 trials for better single leg stability for climbing ladder and getting up from the floor STG Duration 4 weeks Shelter Goal (LTG) pt will have improved SLS up to average 20s in 3 trials for better single leg stability for climbing ladder and getting up from the floor LTG Duration 8 weeks LEFS Impairment pt scores 64/80 on LEFS Shelter Goal (LTG) pt will score 70/80 on LEFs to improve her quality of life with minimal discomfort. LTG Duration 8 weeks Assessment Summary Assessment Pt is a 73yo female with bilateral knee discomfort, decreased single leg stability and strength. Pt had arthroscopic clean up and removal for both R medial meniscus (Jul, 2019) and L menicus (Apr, 2020). Upon assessment, pt has symmetrical WFL AROM and strength on both knees. She does have residual tenderness to pressure at R hip distal adductors and medial joint line, along with poor single leg balance and strength who has difficulty getting up from floor by using lunges. Pt will benefit from skilled therapy to improve her single leg stability and strength in order for her to participate gardening activities such as climbing ladder and getting up from the floor without support safely. Physical Therapy Plan Frequency and Duration Frequency of Treatment 2x/ wkx4, 1/wk x 4 Duration of Treatment 8 weeks Plan of Care Start Date 08/05/20 Plan of Care End Date 10/04/20 Therapeutic Interventions Therapeutic Interventions Balance Training,Gait Training ,Home Exercise Program,Joint Mobilizations,Manual Therapy, Neuromuscular Re-education, Self-Care/Home Management,Soft Tissue Mobilization,Taping, Therapeutic Activities, Therapeutic Exercises Modalities Biofeedback,Cold Pack/Ice Massage,Electric Stimulation, Hot Packs,Infrared Therapy, Iontophoresis,Ultrasound Next Visit Focus/Plan Next Note Type Treatment Note Next Visit Plan bike STM on hip adducotrs, medial joint line, rolling pin LAQ leg press SL balance
--- NOTE | 2020-08-05 17:14 | PT.OPPOC ---
Physical, Occupational & Speech Therapy At [facility] Current Diagnoses Complex tear of medial meniscus, current injury, left knee, subsequent encounter (08/05/20) Visit Care Team Role Provider Type Santos Mendez DO Family Provider Non-Staff Primary Care Provider Specialty: Family Practice Address: [address] , [place], [address] Email: Dwain Lopez MD Attending Provider Non-Staff Referring Provider Specialty: Orthopedic Surgery Address: [address], [place], [address] Email: Plan Of Care PT-OP-T Assessment and Plan Start: 08/05/20 16:43 Freq: Status: Active Protocol: Document 08/05/20 16:43 (Rec: 08/05/20 17:13 [email or web address]) Physical Therapy Assessment Rehab Potential Rehabilitation Potential Excellent Evaluation Complexity Number of Personal Factors/Comorbidities 0 Number of Body Systems Impaired 1-2 Clinical Presentation at Evaluation Stable Impairments Impairments Activity Tolerance,Balance, Functional Activities, Functional Mobility,Gait,Pain, ROM,Soft Tissue Mobility, Strength,Transfers Goals functional activities Impairment pt has difficulty getting up from the floor and kneeling Short Term Goal (STG) pt will be able to getting up from floor with 1 UE support by using lunges so she can recovery from floor after gardening STG Duration 4 weeks Alf Goal (LTG) pt will be able to getting up from floor without support by using lunges so she can recovery from floor after gardening LTG Duration 8 weeks balance Impairment SLS= 11-13 s Short Term Goal (STG) pt will have improved SLS up to average 15s in 3 trials for better single leg stability for climbing ladder and getting up from the floor STG Duration 4 weeks Alf Goal (LTG) pt will have improved SLS up to average 20s in 3 trials for better single leg stability for climbing ladder and getting up from the floor LTG Duration 8 weeks LEFS Impairment pt scores 64/80 on LEFS Evaluation Specialist Goal (LTG) pt will score 70/80 on LEFs to improve her quality of life with minimal discomfort. LTG Duration 8 weeks Assessment Summary Assessment Pt is a 73yo female with bilateral knee discomfort, decreased single leg stability and strength. Pt had arthroscopic clean up and removal for both R medial meniscus (Jul, 2019) and L menicus (Apr, 2020). Upon assessment, pt has symmetrical WFL AROM and strength on both knees. She does have residual tenderness to pressure at R hip distal adductors and medial joint line, along with poor single leg balance and strength who has difficulty getting up from floor by using lunges. Pt will benefit from skilled therapy to improve her single leg stability and strength in order for her to participate gardening activities such as climbing ladder and getting up from the floor without support safely. Physical Therapy Plan Frequency and Duration Frequency of Treatment 2x/ wkx4, 1/wk x 4 Duration of Treatment 8 weeks Plan of Care Start Date 08/05/20 Plan of Care End Date 10/04/20 Therapeutic Interventions Therapeutic Interventions Balance Training,Gait Training ,Home Exercise Program,Joint Mobilizations,Manual Therapy, Neuromuscular Re-education, Self-Care/Home Management,Soft Tissue Mobilization,Taping, Therapeutic Activities, Therapeutic Exercises Modalities Biofeedback,Cold Pack/Ice Massage,Electric Stimulation, Hot Packs,Infrared Therapy, Iontophoresis,Ultrasound Next Visit Focus/Plan Next Note Type Treatment Note Next Visit Plan bike STM on hip adducotrs, medial joint line, rolling pin LAQ leg press SL balance Plan of Care Dates Plan of Care Start Date 08/05/20 Plan of Care End Date 10/04/20 Electronically Signed by: Leesa Heck PT 08/05/20 1251 Please Sign and Return: I have reviewed this Plan of Care and certify that the skilled therapy services above are required to meet the patient?s needs. Physician Signature Date Printed Name and Credentials Clinical Instructor Signature Printed Name and Credentials
--- NOTE | 2020-08-12 11:12 | PT.OTN ---
Current Diagnoses Complex tear of medial meniscus, current injury, left knee, subsequent encounter (08/12/20) Physical Therapy Treatment Note PT-OP-A Visit Information Start: 08/05/20 16:43 Freq: Status: Active Protocol: Document 08/12/20 10:32 HH (Rec: 08/12/20 11:12 [email or web address]) Out-Patient Physical Therapy Visit Information Visit Information Visit Type Treatment Note Visit Start Time 10:32 Visit Stop Time 11:15 Total Visit Minutes 43 Visit Number 08/30 Number of SPECIAL NEEDS CHILD CAREGIVER Visits 0 PT-OP-B Current Condition Start: 08/05/20 16:43 Freq: Status: Active Protocol: Document 08/05/20 16:43 HH (Rec: 08/05/20 17:13 [email or web address]) Current Condition History of Current Condition Onset Date apr, 2020 Current Complaints post op L medial and lateral meniscus, R medial knee pain History of Current Condition Pt is a 74yo female presented to clinic with B knee discomfort since last year. Pt had a arthoscopic clean up and removal on L meniscus in Apr and on R medial meniscus in 08/09/19. Pt stated that her L knee has been recovering well and has full ROM but feels like lack of strength. She is currently using step to pattern with rails for stair climbing and has difficulty getting up and down from the floor. However, pt does not have much c/o pain . Pt also had PT for her R knee and recovered very well but still has mild discomfort with tenderness to pressure at R medial joint line. Prior Treatments and Tests course of PT for her R medial knee from September to December. Treatment Goals Patient/Caregiver Goals 1. to be able to do gardening activities in kneeling position 2. to be able to climb ladder again for housework 3. to be able to get up and down from the floor at ease. PT-OP-C Subjective Start: 08/05/20 16:43 Freq: Status: Active Protocol: Document 08/12/20 10:32 HH (Rec: 08/12/20 11:12 [id number]) OP-PT Subjective Patient Comments Patient Comments Im ready to do PT again PT-OP-D Balance Start: 08/05/20 16:43 Freq: Status: Active Protocol: Document 08/05/20 16:43 HH (Rec: 08/05/20 17:13 [email or web address]) Balance Tests Single Limb Standing Single Limb- Right 13 Single Limb- Left 11.3 PT-OP-F Manual Assessment Start: 08/05/20 16:43 Freq: Status: Active Protocol: Document 08/05/20 16:43 HH (Rec: 08/05/20 17:13 [email or web address]) Manual Assessments Soft Tissue Assessment Soft Tissue Mobility Assessment tenderness to pressure at R hip adductors and medial knee joint line Joint Mobility Assessment Joint Mobility Assessment WFL PT-OP-G Mobility & Gait Start: 08/05/20 16:43 Freq: Status: Active Protocol: Document 08/05/20 16:43 HH (Rec: 08/05/20 17:13 [email or web address]) Stair Climbing Evaluation Devices Stair Climbing Assistive Devices Right Railing Technique/Endurance Stair Climbing Direction Ascend and Descend Stair Climbing Technique Step Over Step,Step to Step Comments Stair Climbing Comments pt was able to climb 4 steps x 2 with step over pattern with 1 rail. She was very cautious with her steps. PT-OP-K Range of Motion Start: 08/05/20 16:43 Freq: Status: Active Protocol: Document 08/05/20 16:43 HH (Rec: 08/05/20 17:13 [email or web address]) Knee Goniometric Range of Motion Knee Right Knee ROM WFL Yes Patient Position Supine Flexion Active (degrees) 131 Extension Active (degrees) 0 Left Knee ROM WFL Yes Patient Position Supine Flexion Active (degrees) 130 Extension Active (degrees) 0 PT-OP-L Special Tests Start: 08/05/20 16:43 Freq: Status: Active Protocol: Document 08/05/20 16:43 HH (Rec: 08/05/20 17:13 [email or web address]) Special Tests Knee Special Tests Waqas Test Test Results -ve B Varus- 0 Degrees Test Results -ve B Valgus- 25 Degrees Test Results -ve B Varus- 25 Degrees Test Results -ve B Valgus- 0 Degrees Test Results -ve B PT-OP-M Strength Start: 08/05/20 16:43 Freq: Status: Active Protocol: Document 08/05/20 16:43 HH (Rec: 08/05/20 17:13 [email or web address]) Hip Strength Hip Manual Muscle Testing Right Flexion (L2) 5 Normal Extension (S1) 5 Normal Abduction 5 Normal Adduction 5 Normal External Rotation 5 Normal Internal Rotation 5 Normal Left Flexion (L2) 5 Normal Extension (S1) 5 Normal Abduction 5 Normal Adduction 5 Normal External Rotation 5 Normal Internal Rotation 5 Normal Knee Strength Knee Manual Muscle Testing Left Flexion (S2) 4+ Good+ Extension (L3) 4+ Good+ Right Flexion (S2) 4+ Good+ Extension (L3) 4+ Good+ PT-OP-Q Treatments Start: 08/05/20 16:43 Freq: Status: Active Protocol: Document 08/12/20 10:32 (Rec: 08/12/20 11:12 [id number]) Cardio Equipment Recumbent Bicycle Duration (Minutes) 5 Resistance 5 Seat Position 4 Other after manual therapy Therapeutic Exercises Sidelying Exercises clamshell Side bilateral Reps/Minutes 8 x 2 Comments for HEP Sitting Exercises LAQ Side bilateral Reps/Minutes 10 x2 Comments for HEP Standing Exercises toe tap Standing Exercise Name 3 way Side bilateral Reps/Minutes 10 x2 Comments for HEP step up / down Side bilateral Equipment Used 8 inches step Reps/Minutes 10 x2 Comments for HEP Manual Therapy Treatment Soft Tissue Mobilization knee (medial joint line) Mobilization Type Sustained Pressure,Trigger Point Release Intensity/Depth Moderate Body Position Supine Comments mod tenderness to pressure at medial joint line hip adductors Mobilization Type Sustained Pressure,Trigger Point Release Intensity/Depth Moderate Body Position Supine Comments mod tenderness to pressure at medial joint line PT-OP-T Assessment and Plan Start: 08/05/20 16:43 Freq: Status: Active Protocol: Document 08/12/20 10:32 (Rec: 08/12/20 11:12 [id number]) Physical Therapy Assessment Goals functional activities Impairment pt has difficulty getting up from the floor and kneeling Short Term Goal (STG) pt will be able to getting up from floor with 1 UE support by using lunges so she can recovery from floor after gardening STG Duration 4 weeks Mcc Goal (LTG) pt will be able to getting up from floor without support by using lunges so she can recovery from floor after gardening LTG Duration 8 weeks balance Impairment SLS= 11-13 s Short Term Goal (STG) pt will have improved SLS up to average 15s in 3 trials for better single leg stability for climbing ladder and getting up from the floor STG Duration 4 weeks Picture Framer Goal (LTG) pt will have improved SLS up to average 20s in 3 trials for better single leg stability for climbing ladder and getting up from the floor LTG Duration 8 weeks LEFS Impairment pt scores 64/80 on LEFS Mcc Goal (LTG) pt will score 70/80 on LEFs to improve her quality of life with minimal discomfort. LTG Duration 8 weeks Assessment Summary Assessment Pt only has tenderness to pressure at R distal hip adductors and medial joint line. She felt good after manual therapy. Added step up, clamshell, 3 way toe tap, LAQ . for HEP. Pt shows good understanding. Physical Therapy Plan Frequency and Duration Frequency of Treatment 2x/ wkx4, 1/wk x 4 Duration of Treatment 8 weeks Plan of Care Start Date 08/05/20 Plan of Care End Date 10/04/20 Next Visit Focus/Plan Next Note Type Treatment Note Next Visit Plan bike STM on hip adducotrs, medial joint line, rolling pin LAQ leg press SL balance
--- NOTE | 2020-08-15 11:19 | PT.OTN ---
Current Diagnoses Complex tear of medial meniscus, current injury, left knee, subsequent encounter (08/15/20) Physical Therapy Treatment Note PT-OP-A Visit Information Start: 08/05/20 16:43 Freq: Status: Active Protocol: Document 08/15/20 10:36 HH (Rec: 08/15/20 11:19 HH [id number]) Out-Patient Physical Therapy Visit Information Visit Information Visit Type Treatment Note Visit Start Time 10:33 Visit Stop Time 11:15 Total Visit Minutes 42 Visit Number 09/27 Number of COMMUNITY RESOURCE CONSULTANT Visits 0 PT-OP-B Current Condition Start: 08/05/20 16:43 Freq: Status: Active Protocol: Document 08/05/20 16:43 HH (Rec: 08/05/20 17:13 HH [email or web address]) Current Condition History of Current Condition Onset Date apr, 2020 Current Complaints post op L medial and lateral meniscus, R medial knee pain History of Current Condition Pt is a 74yo female presented to clinic with B knee discomfort since last year. Pt had a arthoscopic clean up and removal on L meniscus in Apr and on R medial meniscus in 08/09/19. Pt stated that her L knee has been recovering well and has full ROM but feels like lack of strength. She is currently using step to pattern with rails for stair climbing and has difficulty getting up and down from the floor. However, pt does not have much c/o pain . Pt also had PT for her R knee and recovered very well but still has mild discomfort with tenderness to pressure at R medial joint line. Prior Treatments and Tests course of PT for her R medial knee from September to December. Treatment Goals Patient/Caregiver Goals 1. to be able to do gardening activities in kneeling position 2. to be able to climb ladder again for housework 3. to be able to get up and down from the floor at ease. PT-OP-C Subjective Start: 08/05/20 16:43 Freq: Status: Active Protocol: Document 08/15/20 10:36 HH (Rec: 08/15/20 11:19 HH [id number]) OP-PT Subjective Patient Comments Patient Comments My knee is doing good and it didnt bother me. PT-OP-D Balance Start: 08/05/20 16:43 Freq: Status: Active Protocol: Document 08/05/20 16:43 HH (Rec: 08/05/20 17:13 [email or web address]) Balance Tests Single Limb Standing Single Limb- Right 13 Single Limb- Left 11.3 PT-OP-F Manual Assessment Start: 08/05/20 16:43 Freq: Status: Active Protocol: Document 08/05/20 16:43 (Rec: 08/05/20 17:13 [email or web address]) Manual Assessments Soft Tissue Assessment Soft Tissue Mobility Assessment tenderness to pressure at R hip adductors and medial knee joint line Joint Mobility Assessment Joint Mobility Assessment WFL PT-OP-G Mobility & Gait Start: 08/05/20 16:43 Freq: Status: Active Protocol: Document 08/05/20 16:43 (Rec: 08/05/20 17:13 [email or web address]) Stair Climbing Evaluation Devices Stair Climbing Assistive Devices Right Railing Technique/Endurance Stair Climbing Direction Ascend and Descend Stair Climbing Technique Step Over Step,Step to Step Comments Stair Climbing Comments pt was able to climb 4 steps x 2 with step over pattern with 1 rail. She was very cautious with her steps. PT-OP-K Range of Motion Start: 08/05/20 16:43 Freq: Status: Active Protocol: Document 08/05/20 16:43 (Rec: 08/05/20 17:13 [email or web address]) Knee Goniometric Range of Motion Knee Right Knee ROM WFL Yes Patient Position Supine Flexion Active (degrees) 131 Extension Active (degrees) 0 Left Knee ROM WFL Yes Patient Position Supine Flexion Active (degrees) 130 Extension Active (degrees) 0 PT-OP-L Special Tests Start: 08/05/20 16:43 Freq: Status: Active Protocol: Document 08/05/20 16:43 (Rec: 08/05/20 17:13 [email or web address]) Special Tests Knee Special Tests Waqas Test Test Results -ve B Varus- 0 Degrees Test Results -ve B Valgus- 25 Degrees Test Results -ve B Varus- 25 Degrees Test Results -ve B Valgus- 0 Degrees Test Results -ve B PT-OP-M Strength Start: 08/05/20 16:43 Freq: Status: Active Protocol: Document 08/05/20 16:43 (Rec: 08/05/20 17:13 [email or web address]) Hip Strength Hip Manual Muscle Testing Right Flexion (L2) 5 Normal Extension (S1) 5 Normal Abduction 5 Normal Adduction 5 Normal External Rotation 5 Normal Internal Rotation 5 Normal Left Flexion (L2) 5 Normal Extension (S1) 5 Normal Abduction 5 Normal Adduction 5 Normal External Rotation 5 Normal Internal Rotation 5 Normal Knee Strength Knee Manual Muscle Testing Left Flexion (S2) 4+ Good+ Extension (L3) 4+ Good+ Right Flexion (S2) 4+ Good+ Extension (L3) 4+ Good+ PT-OP-Q Treatments Start: 08/05/20 16:43 Freq: Status: Active Protocol: Document 08/15/20 10:36 (Rec: 08/15/20 11:19 [id number]) Cardio Equipment Recumbent Bicycle Duration (Minutes) 5 Resistance 5 Seat Position 4 Gym Equipment Shuttle Recovery uni squat Resistance #37 Shuttle Recovery Platform Stable Therapeutic Exercises Sidelying Exercises clamshell Side bilateral Reps/Minutes 10 x2 Comments for HEP Sitting Exercises LAQ Side bilateral Equipment Used 2# ankle weight Reps/Minutes 10 x3 Comments for HEP Standing Exercises toe tap Standing Exercise Name in place Side bilateral Reps/Minutes 10 x2 Comments for HEP step up / down Side bilateral Equipment Used 8 inches step Reps/Minutes 10 x2 Comments for HEP PT-OP-T Assessment and Plan Start: 08/05/20 16:43 Freq: Status: Active Protocol: Document 08/15/20 10:36 (Rec: 08/15/20 11:19 [id number]) Physical Therapy Assessment Goals functional activities Impairment pt has difficulty getting up from the floor and kneeling Short Term Goal (STG) pt will be able to getting up from floor with 1 UE support by using lunges so she can recovery from floor after gardening STG Duration 4 weeks Case Folder Goal (LTG) pt will be able to getting up from floor without support by using lunges so she can recovery from floor after gardening LTG Duration 8 weeks balance Impairment SLS= 11-13 s Short Term Goal (STG) pt will have improved SLS up to average 15s in 3 trials for better single leg stability for climbing ladder and getting up from the floor STG Duration 4 weeks Case Folder Goal (LTG) pt will have improved SLS up to average 20s in 3 trials for better single leg stability for climbing ladder and getting up from the floor LTG Duration 8 weeks LEFS Impairment pt scores 64/80 on LEFS [facility] Goal (LTG) pt will score 70/80 on LEFs to improve her quality of life with minimal discomfort. LTG Duration 8 weeks Assessment Summary Assessment pt radha session well which focused mostly on hip and knee strengthening. No discomfort noted. Physical Therapy Plan Frequency and Duration Frequency of Treatment 2x/ wkx4, 1/wk x 4 Duration of Treatment 8 weeks Plan of Care Start Date 08/05/20 Plan of Care End Date 10/04/20 Next Visit Focus/Plan Next Note Type Treatment Note Next Visit Plan bike STM on hip adducotrs, medial joint line, rolling pin LAQ leg press SL balance
--- NOTE | 2020-08-19 11:17 | PT.OTN ---
Current Diagnoses Complex tear of medial meniscus, current injury, left knee, subsequent encounter (08/19/20) Physical Therapy Treatment Note PT-OP-A Visit Information Start: 08/05/20 16:43 Freq: Status: Active Protocol: Document 08/19/20 10:30 HH (Rec: 08/19/20 11:17 HH [id number]) Out-Patient Physical Therapy Visit Information Visit Information Visit Type Treatment Note Visit Start Time 10:32 Visit Stop Time 11:15 Total Visit Minutes 43 Visit Number 10/28 Number of MANAGER SEARCH ENGINE Visits 0 PT-OP-B Current Condition Start: 08/05/20 16:43 Freq: Status: Active Protocol: Document 08/05/20 16:43 HH (Rec: 08/05/20 17:13 HH [email or web address]) Current Condition History of Current Condition Onset Date apr, 2020 Current Complaints post op L medial and lateral meniscus, R medial knee pain History of Current Condition Pt is a 74yo female presented to clinic with B knee discomfort since last year. Pt had a arthoscopic clean up and removal on L meniscus in Apr and on R medial meniscus in 08/09/19. Pt stated that her L knee has been recovering well and has full ROM but feels like lack of strength. She is currently using step to pattern with rails for stair climbing and has difficulty getting up and down from the floor. However, pt does not have much c/o pain . Pt also had PT for her R knee and recovered very well but still has mild discomfort with tenderness to pressure at R medial joint line. Prior Treatments and Tests course of PT for her R medial knee from September to December. Treatment Goals Patient/Caregiver Goals 1. to be able to do gardening activities in kneeling position 2. to be able to climb ladder again for housework 3. to be able to get up and down from the floor at ease. PT-OP-C Subjective Start: 08/05/20 16:43 Freq: Status: Active Protocol: Document 08/19/20 10:30 HH (Rec: 08/19/20 11:17 HH [id number]) OP-PT Subjective Patient Comments Patient Comments My knees are doing good and no discomfort at all. Patient Reported Progress Improving PT-OP-D Balance Start: 08/05/20 16:43 Freq: Status: Active Protocol: Document 08/05/20 16:43 HH (Rec: 08/05/20 17:13 [email or web address]) Balance Tests Single Limb Standing Single Limb- Right 13 Single Limb- Left 11.3 PT-OP-F Manual Assessment Start: 08/05/20 16:43 Freq: Status: Active Protocol: Document 08/05/20 16:43 HH (Rec: 08/05/20 17:13 [email or web address]) Manual Assessments Soft Tissue Assessment Soft Tissue Mobility Assessment tenderness to pressure at R hip adductors and medial knee joint line Joint Mobility Assessment Joint Mobility Assessment WFL PT-OP-G Mobility & Gait Start: 08/05/20 16:43 Freq: Status: Active Protocol: Document 08/05/20 16:43 HH (Rec: 08/05/20 17:13 [email or web address]) Stair Climbing Evaluation Devices Stair Climbing Assistive Devices Right Railing Technique/Endurance Stair Climbing Direction Ascend and Descend Stair Climbing Technique Step Over Step,Step to Step Comments Stair Climbing Comments pt was able to climb 4 steps x 2 with step over pattern with 1 rail. She was very cautious with her steps. PT-OP-K Range of Motion Start: 08/05/20 16:43 Freq: Status: Active Protocol: Document 08/05/20 16:43 HH (Rec: 08/05/20 17:13 [email or web address]) Knee Goniometric Range of Motion Knee Right Knee ROM WFL Yes Patient Position Supine Flexion Active (degrees) 131 Extension Active (degrees) 0 Left Knee ROM WFL Yes Patient Position Supine Flexion Active (degrees) 130 Extension Active (degrees) 0 PT-OP-L Special Tests Start: 08/05/20 16:43 Freq: Status: Active Protocol: Document 08/05/20 16:43 HH (Rec: 08/05/20 17:13 [email or web address]) Special Tests Knee Special Tests Waqas Test Test Results -ve B Varus- 0 Degrees Test Results -ve B Valgus- 25 Degrees Test Results -ve B Varus- 25 Degrees Test Results -ve B Valgus- 0 Degrees Test Results -ve B PT-OP-M Strength Start: 08/05/20 16:43 Freq: Status: Active Protocol: Document 08/05/20 16:43 HH (Rec: 08/05/20 17:13 [email or web address]) Hip Strength Hip Manual Muscle Testing Right Flexion (L2) 5 Normal Extension (S1) 5 Normal Abduction 5 Normal Adduction 5 Normal External Rotation 5 Normal Internal Rotation 5 Normal Left Flexion (L2) 5 Normal Extension (S1) 5 Normal Abduction 5 Normal Adduction 5 Normal External Rotation 5 Normal Internal Rotation 5 Normal Knee Strength Knee Manual Muscle Testing Left Flexion (S2) 4+ Good+ Extension (L3) 4+ Good+ Right Flexion (S2) 4+ Good+ Extension (L3) 4+ Good+ PT-OP-Q Treatments Start: 08/05/20 16:43 Freq: Status: Active Protocol: Document 08/19/20 10:30 HH (Rec: 08/19/20 11:17 [id number]) Cardio Equipment Recumbent Bicycle Duration (Minutes) 7 Resistance 5 Seat Position 4 Gym Equipment Shuttle Recovery uni squat Resistance #37 Shuttle Recovery Platform Stable Reps/Time 15 x2 Therapeutic Exercises Sidelying Exercises clamshell Side bilateral Reps/Minutes 10 x2 Comments for HEP Sitting Exercises LAQ Side bilateral Equipment Used 2# ankle weight Reps/Minutes 10 x3 Comments for HEP Standing Exercises toe tap Standing Exercise Name in place Side bilateral Reps/Minutes 10 x2 Comments for HEP step up / down Side bilateral Equipment Used 8 inches step Reps/Minutes 10 x2 Comments for HEP ankle board Side bilateral Reps/Minutes 3 mins Comments no support Manual Therapy Treatment Soft Tissue Mobilization knee (medial joint line) Mobilization Type Sustained Pressure,Trigger Point Release Intensity/Depth Moderate Body Position Supine Comments no discomfort to pressure today. hip adductors Mobilization Type Sustained Pressure,Trigger Point Release Intensity/Depth Moderate Body Position Supine Comments mod tenderness to pressure at medial joint line Neuro Re-Education Treatment Balance Activities weight shift Details on barrios surface then blue foam Reps/Duration 2 mins Comments anterior and posterior weight shift. PT-OP-T Assessment and Plan Start: 08/05/20 16:43 Freq: Status: Active Protocol: Document 08/19/20 10:30 HH (Rec: 08/19/20 11:17 [id number]) Physical Therapy Assessment Goals functional activities Impairment pt has difficulty getting up from the floor and kneeling Short Term Goal (STG) pt will be able to getting up from floor with 1 UE support by using lunges so she can recovery from floor after gardening STG Duration 4 weeks Fdc Goal (LTG) pt will be able to getting up from floor without support by using lunges so she can recovery from floor after gardening LTG Duration 8 weeks balance Impairment SLS= 11-13 s Short Term Goal (STG) pt will have improved SLS up to average 15s in 3 trials for better single leg stability for climbing ladder and getting up from the floor STG Duration 4 weeks Fdc Goal (LTG) pt will have improved SLS up to average 20s in 3 trials for better single leg stability for climbing ladder and getting up from the floor LTG Duration 8 weeks LEFS Impairment pt scores 64/80 on LEFS Fdc Goal (LTG) pt will score 70/80 on LEFs to improve her quality of life with minimal discomfort. LTG Duration 8 weeks Assessment Summary Assessment Pt progress well so far. She has no discomfort to pressure at right medial knee today. Physical Therapy Plan Frequency and Duration Frequency of Treatment 2x/ wkx4, 1/wk x 4 Duration of Treatment 8 weeks Plan of Care Start Date 08/05/20 Plan of Care End Date 10/04/20 Next Visit Focus/Plan Next Note Type Treatment Note Next Visit Plan bike STM on hip adducotrs, medial joint line, rolling pin LAQ leg press SL balance
--- NOTE | 2020-08-22 11:15 | PT.OTN ---
Current Diagnoses Complex tear of medial meniscus, current injury, left knee, subsequent encounter (08/22/20) Physical Therapy Treatment Note PT-OP-A Visit Information Start: 08/05/20 16:43 Freq: Status: Active Protocol: Document 08/22/20 10:31 HH (Rec: 08/22/20 11:15 HH [id number]) Out-Patient Physical Therapy Visit Information Visit Information Visit Type Treatment Note Visit Start Time 10:33 Visit Stop Time 11:15 Total Visit Minutes 43 Visit Number 10/28 Number of BOILER FIREMAN Visits 0 PT-OP-B Current Condition Start: 08/05/20 16:43 Freq: Status: Active Protocol: Document 08/05/20 16:43 HH (Rec: 08/05/20 17:13 HH [email or web address]) Current Condition History of Current Condition Onset Date apr, 2020 Current Complaints post op L medial and lateral meniscus, R medial knee pain History of Current Condition Pt is a 74yo female presented to clinic with B knee discomfort since last year. Pt had a arthoscopic clean up and removal on L meniscus in Apr and on R medial meniscus in 08/09/19. Pt stated that her L knee has been recovering well and has full ROM but feels like lack of strength. She is currently using step to pattern with rails for stair climbing and has difficulty getting up and down from the floor. However, pt does not have much c/o pain . Pt also had PT for her R knee and recovered very well but still has mild discomfort with tenderness to pressure at R medial joint line. Prior Treatments and Tests course of PT for her R medial knee from September to December. Treatment Goals Patient/Caregiver Goals 1. to be able to do gardening activities in kneeling position 2. to be able to climb ladder again for housework 3. to be able to get up and down from the floor at ease. PT-OP-C Subjective Start: 08/05/20 16:43 Freq: Status: Active Protocol: Document 08/22/20 10:31 HH (Rec: 08/22/20 11:15 HH [id number]) OP-PT Subjective Patient Comments Patient Comments My knees feel great so far. But my back is stiff because its so cold Patient Reported Progress Improving PT-OP-D Balance Start: 08/05/20 16:43 Freq: Status: Active Protocol: Document 08/05/20 16:43 HH (Rec: 08/05/20 17:13 [email or web address]) Balance Tests Single Limb Standing Single Limb- Right 13 Single Limb- Left 11.3 PT-OP-F Manual Assessment Start: 08/05/20 16:43 Freq: Status: Active Protocol: Document 08/05/20 16:43 HH (Rec: 08/05/20 17:13 [email or web address]) Manual Assessments Soft Tissue Assessment Soft Tissue Mobility Assessment tenderness to pressure at R hip adductors and medial knee joint line Joint Mobility Assessment Joint Mobility Assessment WFL PT-OP-G Mobility & Gait Start: 08/05/20 16:43 Freq: Status: Active Protocol: Document 08/05/20 16:43 HH (Rec: 08/05/20 17:13 [email or web address]) Stair Climbing Evaluation Devices Stair Climbing Assistive Devices Right Railing Technique/Endurance Stair Climbing Direction Ascend and Descend Stair Climbing Technique Step Over Step,Step to Step Comments Stair Climbing Comments pt was able to climb 4 steps x 2 with step over pattern with 1 rail. She was very cautious with her steps. PT-OP-K Range of Motion Start: 08/05/20 16:43 Freq: Status: Active Protocol: Document 08/05/20 16:43 HH (Rec: 08/05/20 17:13 [email or web address]) Knee Goniometric Range of Motion Knee Right Knee ROM WFL Yes Patient Position Supine Flexion Active (degrees) 131 Extension Active (degrees) 0 Left Knee ROM WFL Yes Patient Position Supine Flexion Active (degrees) 130 Extension Active (degrees) 0 PT-OP-L Special Tests Start: 08/05/20 16:43 Freq: Status: Active Protocol: Document 08/05/20 16:43 HH (Rec: 08/05/20 17:13 [email or web address]) Special Tests Knee Special Tests Waqas Test Test Results -ve B Varus- 0 Degrees Test Results -ve B Valgus- 25 Degrees Test Results -ve B Varus- 25 Degrees Test Results -ve B Valgus- 0 Degrees Test Results -ve B PT-OP-M Strength Start: 08/05/20 16:43 Freq: Status: Active Protocol: Document 08/05/20 16:43 HH (Rec: 08/05/20 17:13 [email or web address]) Hip Strength Hip Manual Muscle Testing Right Flexion (L2) 5 Normal Extension (S1) 5 Normal Abduction 5 Normal Adduction 5 Normal External Rotation 5 Normal Internal Rotation 5 Normal Left Flexion (L2) 5 Normal Extension (S1) 5 Normal Abduction 5 Normal Adduction 5 Normal External Rotation 5 Normal Internal Rotation 5 Normal Knee Strength Knee Manual Muscle Testing Left Flexion (S2) 4+ Good+ Extension (L3) 4+ Good+ Right Flexion (S2) 4+ Good+ Extension (L3) 4+ Good+ PT-OP-Q Treatments Start: 08/05/20 16:43 Freq: Status: Active Protocol: Document 08/22/20 10:31 (Rec: 08/22/20 11:15 [id number]) Cardio Equipment Recumbent Bicycle Duration (Minutes) 7 Resistance 5 Seat Position 4 Gym Equipment Shuttle Recovery uni squat Resistance #37 & 50 Shuttle Recovery Platform Stable Reps/Time 10x 3 Therapeutic Exercises Sitting Exercises LAQ Side bilateral Equipment Used 2# ankle weight Reps/Minutes 10 x3 Comments for HEP Standing Exercises SLS Reps/Minutes 5 times each leg Comments able to hold 5-10 sec toe tap Standing Exercise Name in place Side bilateral Reps/Minutes 10 x2 Comments for HEP step up / down Side bilateral Equipment Used 8 inches step Reps/Minutes 10 x2 Comments for HEP marching in place Standing Exercise Name marching Side bilateral Reps/Minutes 20 ft x4 Manual Therapy Treatment Soft Tissue Mobilization knee (medial joint line) Mobilization Type Sustained Pressure,Trigger Point Release Intensity/Depth Moderate Body Position Supine Comments no discomfort to pressure today. hip adductors Mobilization Type Sustained Pressure,Trigger Point Release Intensity/Depth Moderate Body Position Supine Comments mod tenderness to pressure at medial joint line PT-OP-T Assessment and Plan Start: 08/05/20 16:43 Freq: Status: Active Protocol: Document 08/22/20 10:31 (Rec: 08/22/20 11:15 [id number]) Physical Therapy Assessment Goals functional activities Impairment pt has difficulty getting up from the floor and kneeling Short Term Goal (STG) pt will be able to getting up from floor with 1 UE support by using lunges so she can recovery from floor after gardening STG Duration 4 weeks Water Quality Tester Goal (LTG) pt will be able to getting up from floor without support by using lunges so she can recovery from floor after gardening LTG Duration 8 weeks balance Impairment SLS= 11-13 s Short Term Goal (STG) pt will have improved SLS up to average 15s in 3 trials for better single leg stability for climbing ladder and getting up from the floor STG Duration 4 weeks Water Quality Tester Goal (LTG) pt will have improved SLS up to average 20s in 3 trials for better single leg stability for climbing ladder and getting up from the floor LTG Duration 8 weeks LEFS Impairment pt scores 64/80 on LEFS [facility]sp Goal (LTG) pt will score 70/80 on LEFs to improve her quality of life with minimal discomfort. LTG Duration 8 weeks Assessment Summary Assessment Pt has no more tednerness to touch/ deep pressure at R medial joint line. Pt also show simproved SL balance today on RLE (up to 8-10 secs) Cont progress SL balance and strengthening ex as radha. Physical Therapy Plan Frequency and Duration Frequency of Treatment 2x/ wkx4, 1/wk x 4 Duration of Treatment 8 weeks Plan of Care Start Date 08/05/20 Plan of Care End Date 10/04/20 Next Visit Focus/Plan Next Note Type Treatment Note Next Visit Plan bike LAQ leg press SL balance marching in place step up
--- NOTE | 2020-08-30 13:50 | PT.OTN ---
Current Diagnoses Complex tear of medial meniscus, current injury, left knee, subsequent encounter (08/30/20) Physical Therapy Treatment Note PT-OP-A Visit Information Start: 08/05/20 16:43 Freq: Status: Active Protocol: Document 08/30/20 13:03 LD (Rec: 08/30/20 14:13 LD [id number]) Out-Patient Physical Therapy Visit Information Visit Information Visit Type Treatment Note Visit Note SPTA co-led tx w/ supervision of ABHILASH Lovett, Visit Start Time 13:03 Visit Stop Time 13:50 Total Visit Minutes 47 Visit Number 11/27 Number of CENTER REP Visits 1 PT-OP-B Current Condition Start: 08/05/20 16:43 Freq: Status: Active Protocol: Document 08/05/20 16:43 HH (Rec: 08/05/20 17:13 HH [email or web address]) Current Condition History of Current Condition Onset Date apr, 2020 Current Complaints post op L medial and lateral meniscus, R medial knee pain History of Current Condition Pt is a 74yo female presented to clinic with B knee discomfort since last year. Pt had a arthoscopic clean up and removal on L meniscus in Apr and on R medial meniscus in 08/09/19. Pt stated that her L knee has been recovering well and has full ROM but feels like lack of strength. She is currently using step to pattern with rails for stair climbing and has difficulty getting up and down from the floor. However, pt does not have much c/o pain . Pt also had PT for her R knee and recovered very well but still has mild discomfort with tenderness to pressure at R medial joint line. Prior Treatments and Tests course of PT for her R medial knee from September to December. Treatment Goals Patient/Caregiver Goals 1. to be able to do gardening activities in kneeling position 2. to be able to climb ladder again for housework 3. to be able to get up and down from the floor at ease. PT-OP-C Subjective Start: 08/05/20 16:43 Freq: Status: Active Protocol: Document 08/30/20 13:03 LD (Rec: 08/30/20 14:13 LD [id number]) OP-PT Subjective Patient Comments Patient Comments Pt reports knees are feeling good, L knee bothering more today. Patient Reported Progress Improving PT-OP-D Balance Start: 08/05/20 16:43 Freq: Status: Active Protocol: Document 08/05/20 16:43 HH (Rec: 08/05/20 17:13 [email or web address]) Balance Tests Single Limb Standing Single Limb- Right 13 Single Limb- Left 11.3 PT-OP-F Manual Assessment Start: 08/05/20 16:43 Freq: Status: Active Protocol: Document 08/05/20 16:43 HH (Rec: 08/05/20 17:13 [email or web address]) Manual Assessments Soft Tissue Assessment Soft Tissue Mobility Assessment tenderness to pressure at R hip adductors and medial knee joint line Joint Mobility Assessment Joint Mobility Assessment WFL PT-OP-G Mobility & Gait Start: 08/05/20 16:43 Freq: Status: Active Protocol: Document 08/05/20 16:43 HH (Rec: 08/05/20 17:13 [email or web address]) Stair Climbing Evaluation Devices Stair Climbing Assistive Devices Right Railing Technique/Endurance Stair Climbing Direction Ascend and Descend Stair Climbing Technique Step Over Step,Step to Step Comments Stair Climbing Comments pt was able to climb 4 steps x 2 with step over pattern with 1 rail. She was very cautious with her steps. PT-OP-K Range of Motion Start: 08/05/20 16:43 Freq: Status: Active Protocol: Document 08/05/20 16:43 HH (Rec: 08/05/20 17:13 [email or web address]) Knee Goniometric Range of Motion Knee Right Knee ROM WFL Yes Patient Position Supine Flexion Active (degrees) 131 Extension Active (degrees) 0 Left Knee ROM WFL Yes Patient Position Supine Flexion Active (degrees) 130 Extension Active (degrees) 0 PT-OP-L Special Tests Start: 08/05/20 16:43 Freq: Status: Active Protocol: Document 08/05/20 16:43 HH (Rec: 08/05/20 17:13 [email or web address]) Special Tests Knee Special Tests Waqas Test Test Results -ve B Varus- 0 Degrees Test Results -ve B Valgus- 25 Degrees Test Results -ve B Varus- 25 Degrees Test Results -ve B Valgus- 0 Degrees Test Results -ve B PT-OP-M Strength Start: 08/05/20 16:43 Freq: Status: Active Protocol: Document 08/05/20 16:43 HH (Rec: 08/05/20 17:13 [email or web address]) Hip Strength Hip Manual Muscle Testing Right Flexion (L2) 5 Normal Extension (S1) 5 Normal Abduction 5 Normal Adduction 5 Normal External Rotation 5 Normal Internal Rotation 5 Normal Left Flexion (L2) 5 Normal Extension (S1) 5 Normal Abduction 5 Normal Adduction 5 Normal External Rotation 5 Normal Internal Rotation 5 Normal Knee Strength Knee Manual Muscle Testing Left Flexion (S2) 4+ Good+ Extension (L3) 4+ Good+ Right Flexion (S2) 4+ Good+ Extension (L3) 4+ Good+ PT-OP-Q Treatments Start: 08/05/20 16:43 Freq: Status: Active Protocol: Document 08/30/20 13:03 LD (Rec: 08/30/20 14:13 LD [id number]) Cardio Equipment Bicycle (Upright) Duration (Minutes) 8 Resistance 9 Seat Position 3 Gym Equipment Shuttle Recovery uni squat Resistance 50# Shuttle Recovery Platform Stable Reps/Time 10x 3 Therapeutic Exercises Sitting Exercises LAQ Side bilateral Equipment Used 2# ankle weight Reps/Minutes 10 x3 Comments for HEP Standing Exercises SLS Side bilateral Equipment Used rail for assistance Reps/Minutes 5 times each leg Comments R: 8'',14'' ; L: 14'',14'' step up / down Side bilateral Equipment Used 6 inch step stair Reps/Minutes 10 x2 Comments cued for slow controlled pacing with increased dorsiflexion crab walk Standing Exercise Name Pt only due to unsteady Side bilateral Resistance L1 Reps/Minutes 3 laps Comments above knee, below knee, ankle for each lap marching in place Standing Exercise Name marching Side bilateral Reps/Minutes 20 ft x4 Neuro Re-Education Treatment Balance Activities weight shift Details on barrios surface then blue foam Reps/Duration 2 mins Comments anterior and posterior weight shift w/ heel and toe raises. tandem Surface level surface Equipment grab bar Reps/Duration 10 ft x 8 Comments semi tandem walk next to grab bar cues on facilitating heel strike and knee extension PT-OP-T Assessment and Plan Start: 08/05/20 16:43 Freq: Status: Active Protocol: Document 08/30/20 13:03 LD (Rec: 08/30/20 14:13 LD [id number]) Physical Therapy Assessment Goals functional activities Impairment pt has difficulty getting up from the floor and kneeling Short Term Goal (STG) pt will be able to getting up from floor with 1 UE support by using lunges so she can recovery from floor after gardening STG Duration 4 weeks Firmware Test Engineer Goal (LTG) pt will be able to getting up from floor without support by using lunges so she can recovery from floor after gardening LTG Duration 8 weeks kneeling Impairment Unable to get to/ out from kneeling position without support Short Term Goal (STG) Pt will be able to get down to kneeling / get up from kneeling position without using support to mimic gardening work. STG Duration 4 weeks Firmware Test Engineer Goal (LTG) Goal met: 12/20 Pt is able to get up from kneeling position without support heeltoe Impairment pt is unable to do full heel toe without support Nursing Home Goal (LTG) Pt will be able to complete heel toe gait without support for 50 ft to improve heel strike and ankle stability LTG Duration 4 weeks gait Impairment Pt amb with lack of heel toe pattern bilaterally Nursing Home Goal (LTG) Pt will participate HEP to improve gait efficiency and reduce her fall risks 12/20: goal met. Pt shows improved heel strikes. LTG Duration 4 weeks balance Impairment SLS= 11-13 s Short Term Goal (STG) pt will have improved SLS up to average 15s in 3 trials for better single leg stability for climbing ladder and getting up from the floor STG Duration 4 weeks Nursing Home Goal (LTG) pt will have improved SLS up to average 20s in 3 trials for better single leg stability for climbing ladder and getting up from the floor LTG Duration 8 weeks pain Impairment Pt has heightened pain sensitivity to touch/ pressure at Rmedial joint line Nursing Home Goal (LTG) Goal met. painfree during stairs and step down from getting OOB. 12/20 goal met: pain free for OOB activities and stair climbing. LTG Duration 4 weeks LEFS Impairment pt scores 64/80 on LEFS Firmware Test Engineer Goal (LTG) pt will score 70/80 on LEFs to improve her quality of life with minimal discomfort. LTG Duration 8 weeks Assessment Summary Assessment Tx focus on balance and strengthening. Pt improved SL balance today on R LE, 8 sec initially and 14 sec second time. No discomfort in R knee, L knee is more bothersome today, offer manual to assist w/ L knee pain. Pt declined. Continue progress SL balance and strengthening as tolerated . Physical Therapy Plan Frequency and Duration Frequency of Treatment 2x/ wkx4, 1/wk x 4 Duration of Treatment 8 weeks Plan of Care Start Date 08/05/20 Plan of Care End Date 10/04/20 Therapeutic Interventions Therapeutic Interventions Balance Training,Gait Training ,Home Exercise Program,Joint Mobilizations,Manual Therapy, Neuromuscular Re-education, Self-Care/Home Management,Soft Tissue Mobilization,Taping, Therapeutic Activities, Therapeutic Exercises Modalities Biofeedback,Cold Pack/Ice Massage,Electric Stimulation, Hot Packs,Infrared Therapy, Iontophoresis,Ultrasound Next Visit Focus/Plan Next Note Type Treatment Note Next Visit Plan Assess response to balance and stregnthening: bike LAQ leg press SL balance marching in place step up
--- NOTE | 2020-09-02 12:05 | PT.OTN ---
Current Diagnoses Complex tear of medial meniscus, current injury, left knee, subsequent encounter (09/02/20) Physical Therapy Treatment Note PT-OP-A Visit Information Start: 08/05/20 16:43 Freq: Status: Active Protocol: Document 09/02/20 11:20 MA (Rec: 09/02/20 12:01 MA [id number]) Out-Patient Physical Therapy Visit Information Visit Information Visit Type Treatment Note Visit Start Time 11:15 Visit Stop Time 11:58 Total Visit Minutes 43 Visit Number 12/28 Number of SHIFT STACKER Visits 2 PT-OP-B Current Condition Start: 08/05/20 16:43 Freq: Status: Active Protocol: Document 08/05/20 16:43 HH (Rec: 08/05/20 17:13 HH [email or web address]) Current Condition History of Current Condition Onset Date apr, 2020 Current Complaints post op L medial and lateral meniscus, R medial knee pain History of Current Condition Pt is a 74yo female presented to clinic with B knee discomfort since last year. Pt had a arthoscopic clean up and removal on L meniscus in Apr and on R medial meniscus in 08/09/19. Pt stated that her L knee has been recovering well and has full ROM but feels like lack of strength. She is currently using step to pattern with rails for stair climbing and has difficulty getting up and down from the floor. However, pt does not have much c/o pain . Pt also had PT for her R knee and recovered very well but still has mild discomfort with tenderness to pressure at R medial joint line. Prior Treatments and Tests course of PT for her R medial knee from September to December. Treatment Goals Patient/Caregiver Goals 1. to be able to do gardening activities in kneeling position 2. to be able to climb ladder again for housework 3. to be able to get up and down from the floor at ease. PT-OP-C Subjective Start: 08/05/20 16:43 Freq: Status: Active Protocol: Document 09/02/20 11:20 MA (Rec: 09/02/20 12:01 MA [id number]) OP-PT Subjective Patient Comments Patient Comments Pt states her knee is more sore after last session. She like the recumbant bike more than the upright. PT-OP-D Balance Start: 08/05/20 16:43 Freq: Status: Active Protocol: Document 08/05/20 16:43 HH (Rec: 08/05/20 17:13 [email or web address]) Balance Tests Single Limb Standing Single Limb- Right 13 Single Limb- Left 11.3 PT-OP-F Manual Assessment Start: 08/05/20 16:43 Freq: Status: Active Protocol: Document 08/05/20 16:43 HH (Rec: 08/05/20 17:13 [email or web address]) Manual Assessments Soft Tissue Assessment Soft Tissue Mobility Assessment tenderness to pressure at R hip adductors and medial knee joint line Joint Mobility Assessment Joint Mobility Assessment WFL PT-OP-G Mobility & Gait Start: 08/05/20 16:43 Freq: Status: Active Protocol: Document 08/05/20 16:43 HH (Rec: 08/05/20 17:13 [email or web address]) Stair Climbing Evaluation Devices Stair Climbing Assistive Devices Right Railing Technique/Endurance Stair Climbing Direction Ascend and Descend Stair Climbing Technique Step Over Step,Step to Step Comments Stair Climbing Comments pt was able to climb 4 steps x 2 with step over pattern with 1 rail. She was very cautious with her steps. PT-OP-K Range of Motion Start: 08/05/20 16:43 Freq: Status: Active Protocol: Document 08/05/20 16:43 HH (Rec: 08/05/20 17:13 [email or web address]) Knee Goniometric Range of Motion Knee Right Knee ROM WFL Yes Patient Position Supine Flexion Active (degrees) 131 Extension Active (degrees) 0 Left Knee ROM WFL Yes Patient Position Supine Flexion Active (degrees) 130 Extension Active (degrees) 0 PT-OP-L Special Tests Start: 08/05/20 16:43 Freq: Status: Active Protocol: Document 08/05/20 16:43 HH (Rec: 08/05/20 17:13 [email or web address]) Special Tests Knee Special Tests Waqas Test Test Results -ve B Varus- 0 Degrees Test Results -ve B Valgus- 25 Degrees Test Results -ve B Varus- 25 Degrees Test Results -ve B Valgus- 0 Degrees Test Results -ve B PT-OP-M Strength Start: 08/05/20 16:43 Freq: Status: Active Protocol: Document 08/05/20 16:43 HH (Rec: 08/05/20 17:13 [email or web address]) Hip Strength Hip Manual Muscle Testing Right Flexion (L2) 5 Normal Extension (S1) 5 Normal Abduction 5 Normal Adduction 5 Normal External Rotation 5 Normal Internal Rotation 5 Normal Left Flexion (L2) 5 Normal Extension (S1) 5 Normal Abduction 5 Normal Adduction 5 Normal External Rotation 5 Normal Internal Rotation 5 Normal Knee Strength Knee Manual Muscle Testing Left Flexion (S2) 4+ Good+ Extension (L3) 4+ Good+ Right Flexion (S2) 4+ Good+ Extension (L3) 4+ Good+ PT-OP-Q Treatments Start: 08/05/20 16:43 Freq: Status: Active Protocol: Document 09/02/20 11:20 MA (Rec: 09/02/20 12:01 MA [id number]) Cardio Equipment Recumbent Bicycle Duration (Minutes) 8 Resistance 5 Seat Position 4 Gym Equipment Shuttle Recovery uni squat Resistance 50# Shuttle Recovery Platform Stable Reps/Time 10x 3 Shuttle Balance red Details red Reps/Duration 8 mins Comments WBOS, NBOS, fwd and side Therapeutic Exercises Standing Exercises step up / down Standing Exercise Name fwd & lateral Side bilateral Equipment Used 6 inch step stair Reps/Minutes 10 x2 Comments cued for slow controlled pacing with increased dorsiflexion Neuro Re-Education Treatment Balance Activities weight shift Details Rocker board Reps/Duration 2 min Comments anterior/posterior weight shift tandem Surface blue foam Equipment grab bar Reps/Duration 2 min Comments 1. tandem balance on blue foam 2. tandem walk 4x20 feet PT-OP-T Assessment and Plan Start: 08/05/20 16:43 Freq: Status: Active Protocol: Document 09/02/20 11:20 MA (Rec: 09/02/20 12:01 MA [id number]) Physical Therapy Assessment Goals functional activities Impairment pt has difficulty getting up from the floor and kneeling Short Term Goal (STG) pt will be able to getting up from floor with 1 UE support by using lunges so she can recovery from floor after gardening STG Duration 4 weeks Retirement Goal (LTG) pt will be able to getting up from floor without support by using lunges so she can recovery from floor after gardening LTG Duration 8 weeks heeltoe Impairment pt is unable to do full heel toe without support Golf Club Repairer Goal (LTG) Pt will be able to complete heel toe gait without support for 50 ft to improve heel strike and ankle stability LTG Duration 4 weeks balance Impairment SLS= 11-13 s Short Term Goal (STG) pt will have improved SLS up to average 15s in 3 trials for better single leg stability for climbing ladder and getting up from the floor STG Duration 4 weeks Retirement Goal (LTG) pt will have improved SLS up to average 20s in 3 trials for better single leg stability for climbing ladder and getting up from the floor LTG Duration 8 weeks LEFS Impairment pt scores 64/80 on LEFS Golf Club Repairer Goal (LTG) pt will score 70/80 on LEFs to improve her quality of life with minimal discomfort. LTG Duration 8 weeks Assessment Summary Assessment Pt arrived with knee soreness that went away after warming up on the bike. She had no increase in pain. Pt needs cues to slow down throughout all ther ex. and needs minor assistance holding grab bar while tandem walking. Physical Therapy Plan Frequency and Duration Frequency of Treatment 2x/ wkx4, 1/wk x 4 Duration of Treatment 8 weeks Plan of Care Start Date 08/05/20 Plan of Care End Date 10/04/20 Therapeutic Interventions Therapeutic Interventions Balance Training,Gait Training ,Home Exercise Program,Joint Mobilizations,Manual Therapy, Neuromuscular Re-education, Self-Care/Home Management,Soft Tissue Mobilization,Taping, Therapeutic Activities, Therapeutic Exercises Modalities Biofeedback,Cold Pack/Ice Massage,Electric Stimulation, Hot Packs,Infrared Therapy, Iontophoresis,Ultrasound Next Visit Focus/Plan Next Note Type Treatment Note Next Visit Plan Recumbant bike leg press SL balance marching in place step up tandem walking
--- NOTE | 2020-09-09 11:19 | PT.OTN ---
Current Diagnoses Complex tear of medial meniscus, current injury, left knee, subsequent encounter (09/09/20) Physical Therapy Treatment Note PT-OP-A Visit Information Start: 08/05/20 16:43 Freq: Status: Active Protocol: Document 09/09/20 10:31 HH (Rec: 09/09/20 11:18 HH [id number]) Out-Patient Physical Therapy Visit Information Visit Information Visit Type Treatment Note Visit Start Time 10:31 Visit Stop Time 11:15 Total Visit Minutes 44 Visit Number 01/27 Number of GRAPHIC ART SALES REPRESENTATIVE Visits 0 PT-OP-B Current Condition Start: 08/05/20 16:43 Freq: Status: Active Protocol: Document 08/05/20 16:43 HH (Rec: 08/05/20 17:13 [email or web address]) Current Condition History of Current Condition Onset Date apr, 2020 Current Complaints post op L medial and lateral meniscus, R medial knee pain History of Current Condition Pt is a 74yo female presented to clinic with B knee discomfort since last year. Pt had a arthoscopic clean up and removal on L meniscus in Apr and on R medial meniscus in 08/09/19. Pt stated that her L knee has been recovering well and has full ROM but feels like lack of strength. She is currently using step to pattern with rails for stair climbing and has difficulty getting up and down from the floor. However, pt does not have much c/o pain . Pt also had PT for her R knee and recovered very well but still has mild discomfort with tenderness to pressure at R medial joint line. Prior Treatments and Tests course of PT for her R medial knee from September to December. Treatment Goals Patient/Caregiver Goals 1. to be able to do gardening activities in kneeling position 2. to be able to climb ladder again for housework 3. to be able to get up and down from the floor at ease. PT-OP-C Subjective Start: 08/05/20 16:43 Freq: Status: Active Protocol: Document 09/09/20 10:31 HH (Rec: 09/09/20 11:18 HH [id number]) OP-PT Subjective Patient Comments Patient Comments I fell forward but didnt hit the ground last night because i tripped over my dog. My L knee has been bothering me lately since i tried the upright bike here. But i dont think my other activities trigger my discomfort. Patient Reported Progress Same PT-OP-D Balance Start: 08/05/20 16:43 Freq: Status: Active Protocol: Document 08/05/20 16:43 HH (Rec: 08/05/20 17:13 [email or web address]) Balance Tests Single Limb Standing Single Limb- Right 13 Single Limb- Left 11.3 PT-OP-F Manual Assessment Start: 08/05/20 16:43 Freq: Status: Active Protocol: Document 08/05/20 16:43 HH (Rec: 08/05/20 17:13 [email or web address]) Manual Assessments Soft Tissue Assessment Soft Tissue Mobility Assessment tenderness to pressure at R hip adductors and medial knee joint line Joint Mobility Assessment Joint Mobility Assessment WFL PT-OP-G Mobility & Gait Start: 08/05/20 16:43 Freq: Status: Active Protocol: Document 08/05/20 16:43 HH (Rec: 08/05/20 17:13 [email or web address]) Stair Climbing Evaluation Devices Stair Climbing Assistive Devices Right Railing Technique/Endurance Stair Climbing Direction Ascend and Descend Stair Climbing Technique Step Over Step,Step to Step Comments Stair Climbing Comments pt was able to climb 4 steps x 2 with step over pattern with 1 rail. She was very cautious with her steps. PT-OP-K Range of Motion Start: 08/05/20 16:43 Freq: Status: Active Protocol: Document 08/05/20 16:43 HH (Rec: 08/05/20 17:13 [email or web address]) Knee Goniometric Range of Motion Knee Right Knee ROM WFL Yes Patient Position Supine Flexion Active (degrees) 131 Extension Active (degrees) 0 Left Knee ROM WFL Yes Patient Position Supine Flexion Active (degrees) 130 Extension Active (degrees) 0 PT-OP-L Special Tests Start: 08/05/20 16:43 Freq: Status: Active Protocol: Document 08/05/20 16:43 HH (Rec: 08/05/20 17:13 [email or web address]) Special Tests Knee Special Tests Waqas Test Test Results -ve B Varus- 0 Degrees Test Results -ve B Valgus- 25 Degrees Test Results -ve B Varus- 25 Degrees Test Results -ve B Valgus- 0 Degrees Test Results -ve B PT-OP-M Strength Start: 08/05/20 16:43 Freq: Status: Active Protocol: Document 08/05/20 16:43 (Rec: 08/05/20 17:13 [email or web address]) Hip Strength Hip Manual Muscle Testing Right Flexion (L2) 5 Normal Extension (S1) 5 Normal Abduction 5 Normal Adduction 5 Normal External Rotation 5 Normal Internal Rotation 5 Normal Left Flexion (L2) 5 Normal Extension (S1) 5 Normal Abduction 5 Normal Adduction 5 Normal External Rotation 5 Normal Internal Rotation 5 Normal Knee Strength Knee Manual Muscle Testing Left Flexion (S2) 4+ Good+ Extension (L3) 4+ Good+ Right Flexion (S2) 4+ Good+ Extension (L3) 4+ Good+ PT-OP-Q Treatments Start: 08/05/20 16:43 Freq: Status: Active Protocol: Document 09/09/20 10:31 (Rec: 09/09/20 11:18 [id number]) Cardio Equipment Recumbent Bicycle Duration (Minutes) 8 Resistance 5 Seat Position 4 Gym Equipment Shuttle Recovery uni squat Resistance 50#, 62 Shuttle Recovery Platform Stable Reps/Time 10 x1, 10 x2 Therapeutic Exercises Sitting Exercises LAQ Side bilateral Equipment Used 4# ankle weight Reps/Minutes 10 x3 Comments for HEP Standing Exercises SLS Side bilateral Equipment Used rail for assistance Reps/Minutes 5 times each leg Comments R: 8'',14'' ; L: 14'',16'' step up / down Standing Exercise Name fwd & lateral Side bilateral Equipment Used 6 inch step stair Reps/Minutes 10 x2 Comments cued for slow controlled pacing with increased dorsiflexion PT-OP-T Assessment and Plan Start: 08/05/20 16:43 Freq: Status: Active Protocol: Document 09/09/20 10:31 (Rec: 09/09/20 11:18 [id number]) Physical Therapy Assessment Goals functional activities Impairment pt has difficulty getting up from the floor and kneeling Short Term Goal (STG) pt will be able to getting up from floor with 1 UE support by using lunges so she can recovery from floor after gardening STG Duration 4 weeks Alf Goal (LTG) pt will be able to getting up from floor without support by using lunges so she can recovery from floor after gardening LTG Duration 8 weeks heeltoe Impairment pt is unable to do full heel toe without support Riding Teacher Goal (LTG) Pt will be able to complete heel toe gait without support for 50 ft to improve heel strike and ankle stability LTG Duration 4 weeks balance Impairment SLS= 11-13 s Short Term Goal (STG) pt will have improved SLS up to average 15s in 3 trials for better single leg stability for climbing ladder and getting up from the floor STG Duration 4 weeks Riding Teacher Goal (LTG) pt will have improved SLS up to average 20s in 3 trials for better single leg stability for climbing ladder and getting up from the floor LTG Duration 8 weeks LEFS Impairment pt scores 64/80 on LEFS Riding Teacher Goal (LTG) pt will score 70/80 on LEFs to improve her quality of life with minimal discomfort. LTG Duration 8 weeks Assessment Summary Assessment Pt has tenderness to pressure at L distal adductors possibly d/t minor strain from using upright bike 2 weeks ago. She felt better after manula therapy. Cont to focus on SL balance and overall strengthening. Physical Therapy Plan Frequency and Duration Frequency of Treatment 2x/ wkx4, 1/wk x 4 Duration of Treatment 8 weeks Plan of Care Start Date 08/05/20 Plan of Care End Date 10/04/20 Next Visit Focus/Plan Next Note Type Treatment Note Next Visit Plan Recumbant bike leg press SL balance marching in place step up tandem walking
--- NOTE | 2020-09-16 11:17 | PT.OTN ---
Current Diagnoses Complex tear of medial meniscus, current injury, left knee, subsequent encounter (09/16/20) Physical Therapy Treatment Note PT-OP-A Visit Information Start: 08/05/20 16:43 Freq: Status: Active Protocol: Document 09/16/20 10:34 HH (Rec: 09/16/20 11:16 [id number]) Out-Patient Physical Therapy Visit Information Visit Information Visit Type Discharge Summary Visit Start Time 10:34 Visit Stop Time 11:15 Total Visit Minutes 41 Visit Number 02/27 Number of HORSE GROOMER Visits 0 PT-OP-B Current Condition Start: 08/05/20 16:43 Freq: Status: Active Protocol: Document 08/05/20 16:43 HH (Rec: 08/05/20 17:13 [email or web address]) Current Condition History of Current Condition Onset Date apr, 2020 Current Complaints post op L medial and lateral meniscus, R medial knee pain History of Current Condition Pt is a 74yo female presented to clinic with B knee discomfort since last year. Pt had a arthoscopic clean up and removal on L meniscus in Apr and on R medial meniscus in 08/09/19. Pt stated that her L knee has been recovering well and has full ROM but feels like lack of strength. She is currently using step to pattern with rails for stair climbing and has difficulty getting up and down from the floor. However, pt does not have much c/o pain . Pt also had PT for her R knee and recovered very well but still has mild discomfort with tenderness to pressure at R medial joint line. Prior Treatments and Tests course of PT for her R medial knee from September to December. Treatment Goals Patient/Caregiver Goals 1. to be able to do gardening activities in kneeling position 2. to be able to climb ladder again for housework 3. to be able to get up and down from the floor at ease. PT-OP-C Subjective Start: 08/05/20 16:43 Freq: Status: Active Protocol: Document 09/16/20 10:34 HH (Rec: 09/16/20 11:16 [id number]) OP-PT Subjective Patient Comments Patient Comments Im having a headache today and it kind of bothers me. Im going to have a MRI for my brain just to rule out any brain bleed. My L knee has been doing well and i think im ready to be discharged.. Patient Reported Progress Improving PT-OP-D Balance Start: 08/05/20 16:43 Freq: Status: Active Protocol: Document 08/05/20 16:43 HH (Rec: 08/05/20 17:13 [email or web address]) Balance Tests Single Limb Standing Single Limb- Right 13 Single Limb- Left 11.3 PT-OP-F Manual Assessment Start: 08/05/20 16:43 Freq: Status: Active Protocol: Document 08/05/20 16:43 HH (Rec: 08/05/20 17:13 [email or web address]) Manual Assessments Soft Tissue Assessment Soft Tissue Mobility Assessment tenderness to pressure at R hip adductors and medial knee joint line Joint Mobility Assessment Joint Mobility Assessment WFL PT-OP-G Mobility & Gait Start: 08/05/20 16:43 Freq: Status: Active Protocol: Document 08/05/20 16:43 HH (Rec: 08/05/20 17:13 [email or web address]) Stair Climbing Evaluation Devices Stair Climbing Assistive Devices Right Railing Technique/Endurance Stair Climbing Direction Ascend and Descend Stair Climbing Technique Step Over Step,Step to Step Comments Stair Climbing Comments pt was able to climb 4 steps x 2 with step over pattern with 1 rail. She was very cautious with her steps. PT-OP-K Range of Motion Start: 08/05/20 16:43 Freq: Status: Active Protocol: Document 08/05/20 16:43 HH (Rec: 08/05/20 17:13 [email or web address]) Knee Goniometric Range of Motion Knee Right Knee ROM WFL Yes Patient Position Supine Flexion Active (degrees) 131 Extension Active (degrees) 0 Left Knee ROM WFL Yes Patient Position Supine Flexion Active (degrees) 130 Extension Active (degrees) 0 PT-OP-L Special Tests Start: 08/05/20 16:43 Freq: Status: Active Protocol: Document 08/05/20 16:43 HH (Rec: 08/05/20 17:13 [email or web address]) Special Tests Knee Special Tests Waqas Test Test Results -ve B Varus- 0 Degrees Test Results -ve B Valgus- 25 Degrees Test Results -ve B Varus- 25 Degrees Test Results -ve B Valgus- 0 Degrees Test Results -ve B PT-OP-M Strength Start: 08/05/20 16:43 Freq: Status: Active Protocol: Document 08/05/20 16:43 (Rec: 08/05/20 17:13 [email or web address]) Hip Strength Hip Manual Muscle Testing Right Flexion (L2) 5 Normal Extension (S1) 5 Normal Abduction 5 Normal Adduction 5 Normal External Rotation 5 Normal Internal Rotation 5 Normal Left Flexion (L2) 5 Normal Extension (S1) 5 Normal Abduction 5 Normal Adduction 5 Normal External Rotation 5 Normal Internal Rotation 5 Normal Knee Strength Knee Manual Muscle Testing Left Flexion (S2) 4+ Good+ Extension (L3) 4+ Good+ Right Flexion (S2) 4+ Good+ Extension (L3) 4+ Good+ PT-OP-Q Treatments Start: 08/05/20 16:43 Freq: Status: Active Protocol: Document 09/16/20 10:34 (Rec: 09/16/20 11:16 [id number]) Gym Equipment Shuttle Recovery uni squat Resistance 50#, 62 Shuttle Recovery Platform Stable Reps/Time 10 x1, 10 x2 Therapeutic Exercises Sitting Exercises LAQ Side bilateral Equipment Used 4# ankle weight Reps/Minutes 10 x3 Comments for HEP Standing Exercises SLS Side bilateral Equipment Used rail for assistance Reps/Minutes 5 times each leg Comments R: 8'',14'' ; L: 14'',16'' step up / down Standing Exercise Name fwd & lateral Side bilateral Equipment Used 6 inch step stair Reps/Minutes 10 x2 Comments cued for slow controlled pacing with increased dorsiflexion PT-OP-T Assessment and Plan Start: 08/05/20 16:43 Freq: Status: Active Protocol: Document 09/16/20 10:34 (Rec: 09/16/20 11:16 [id number]) Physical Therapy Assessment Goals functional activities Impairment pt has difficulty getting up from the floor and kneeling Short Term Goal (STG) pt will be able to getting up from floor with 1 UE support by using lunges so she can recovery from floor after gardening STG Duration 4 weeks Housekeeping Aid Goal (LTG) 3/8 goal met pt is able to getting up from floor without support by using lunges so she can recovery from floor after gardening LTG Duration 8 weeks heeltoe Impairment pt is unable to do full heel toe without support Housekeeping Aid Goal (LTG) 3/8 goal met Pt is able to complete heel toe gait without support for 50 ft to improve heel strike and ankle stability LTG Duration 4 weeks balance Impairment SLS= 11-13 s Short Term Goal (STG) pt will have improved SLS up to average 15s in 3 trials for better single leg stability for climbing ladder and getting up from the floor STG Duration 4 weeks Housekeeping Aid Goal (LTG) pt will have improved SLS up to average 20s in 3 trials for better single leg stability for climbing ladder and getting up from the floor LTG Duration 8 weeks LEFS Impairment pt scores 64/80 on LEFS Housekeeping Aid Goal (LTG) pt will score 70/80 on LEFs to improve her quality of life with minimal discomfort. LTG Duration 8 weeks Progress Towards Goals Progress Towards Goals Progressing Toward Goals Assessment Summary Assessment Pt is able to meet most of her goals who has been doing yardwork and climbing stairs without discomfort. she feels safe to be DC at this point. Physical Therapy Plan Frequency and Duration Frequency of Treatment 2x/ wkx4, 1/wk x 4 Duration of Treatment 8 weeks Plan of Care Start Date 08/05/20 Plan of Care End Date 10/04/20 Discharge Physical Therapy Discharge Reasons Patient Request Discharge Comments see assessment Next Visit Focus/Plan Next Note Type Treatment Note Next Visit Plan Recumbant bike leg press SL balance marching in place step up tandem walking
== END 2020-11-11 14:26 | disposition home or self-care (01) ==
LOC: PHYS 10:30
PROVIDERS: Family Provider Family Medicine; PCP Family Medicine; Referring Provider Orthopaedic Surgery; Visit Provider Orthopaedic Surgery
DX: S83.232D Complex tear of medial meniscus, current injury, left knee, subsequent encounter (principal)
CPT/HCPCS: 97110; 97112; 97140; 97161